=== PATIENT | female | born 1965 | race Caucasian/White ===

== ENCOUNTER → 2016-09-03 | Outpatient (CLI) | payer OTHER ==
[~2016-09-03] MED LIST: /ACETCOD2T PO; FURO40TA2 PO; GABA100C PO; MONT10TA2 PO; NORCOBULK PO; NUCY50TA PO; SYMB80AE IN; VENL25TA2 PO; VENTAER IN; VILAZODONE PO; VITA500047 PO; ZOLP12.515 PO
--- NOTE | 2016-09-03 15:12 | REP ---
Right forearm radiographs 09/03/2016, two-view exam Indication: Contusion Findings: AP and lateral views of the right forearm are provided for interpretation. There is no acute fracture subluxation or dislocation within the right forearm. Slight contour deformity/depression of portion of the radial head is consistent with old injury. There is no acute fracture or elbow joint effusion. Impression: findings compatible with old radial head compression type fracture. No acute fracture or dislocation within the right forearm. Signed by Latha Villanueva MD 09/03/2016 03:03 P
--- NOTE | 2016-09-03 15:14 | REP ---
Four view right wrist series 09/03/2016 Patient: Right wrist contusion Findings: Right wrist is without acute fracture, subluxation, or dislocation. The included portions of the metacarpals are within normal limits. The distal radius and ulna are unremarkable. Impression: negative right wrist series Signed by Latha Villanueva MD 09/03/2016 03:06 P
--- NOTE | 2016-09-03 15:21 | REP ---
LUMBAR SPINE, FIVE VIEWS: HISTORY: Contusion. COMPARISON: 08/21/2015 There is no acute fracture or subluxation. The L4-5 and L5-S1 intervertebral discs are decreased in height, consistent with disc degeneration. Osteophytes are present on L5 and S1. The facet joints are normal in appearance. IMPRESSION: Degenerative change as described above. Signed by David Santiago MD 09/03/2016 03:24 P
== END | disposition home or self-care (01) ==
LOC: M SMT 14:35
PROVIDERS: ATTEND Nurse Practitioner Family
DX: S60.211A Contusion of right wrist, initial encounter (principal); S30.0XXA Contusion of lower back and pelvis, initial encounter; M51.37 Other intervertebral disc degeneration, lumbosacral region; X58.XXXA Exposure to other specified factors, initial encounter; Y92.9 Unspecified place or not applicable; Y93.9 Activity, unspecified; Y99.9 Unspecified external cause status

== ENCOUNTER 2016-10-13 09:33 | Observation (INO) | payer MEDICAID, OTHER ==
[~2016-10-13] VITALS: Ht 157.5 cm; Wt 76.6 kg
--- NOTE | 2016-10-13 10:06 | REP ---
Clinical: Chest pain . Comparison: 02/12/2015 . Findings: The mediastinum and cardiac silhouette are stable and within normal limits for portable technique. The lung fregoso are clear without acute consolidation, effusion, or pneumothorax. Skeletal structures are intact. Impression: Normal portable chest x-ray Signed by Yobany Prado MD 10/13/2016 09:57 A
[2016-10-13 10:10] LABS: BASO % 0.4 % (0.0-1.0); EOS % 0.8 % (0.0-3.0); LARGE UNSTAINED CELL # 0.1 K/mm3 (0.0-0.4); LARGE UNSTAINED CELL % 1.9 % (0.0-4.0); LYMPH # 1.6 K/mm3 (1.5-4.5); LYMPH % 30.5 % (24.0-44.0); MEAN CORPUSCULAR HEMOGLOBIN 30.1 pg (27.0-33.0); MEAN CORPUSCULAR HGB CONC 34.5 g/dl (32.0-36.5); MEAN CORPUSCULAR VOLUME 87.2 fl (80.0-96.0); MONO # 0.2 K/mm3 (0.0-0.8); MONO % 3.7 % (0.0-5.0); NEUTROPHILS # 3.4 K/mm3 (1.8-7.7); NEUTROPHILS % 62.7 % (36.0-66.0); PLATELET COUNT, AUTOMATED 202 k/mm3 (150-450); RED CELL DISTRIBUTION WIDTH 13.3 % (11.5-14.5); WHITE BLOOD COUNT 5.4 K/mm3 (4.0-10.0)
[2016-10-13 10:33] LABS: ANION GAP 7 MEQ/L (8-16); BLOOD UREA NITROGEN 15 MG/DL (7-18); CALCIUM LEVEL 8.6 MG/DL (8.5-10.1); CARBON DIOXIDE LEVEL 28 MEQ/L (21-32); CHLORIDE LEVEL 107 MEQ/L (98-107); CREATININE FOR GFR 0.75 MG/DL (0.55-1.02); GLOMERULAR FILTRATION RATE > 60.0 (>58); GLUCOSE, FASTING 91 MG/DL (70-105); POTASSIUM SERUM 3.9 MEQ/L (3.5-5.1); SODIUM LEVEL 142 MEQ/L (136-145)
[2016-10-13] MEDS ORDERED: GABA300C3 PO (19:38)
[2016-10-13] MEDS ORDERED: VITACHTA PO (19:38)
[2016-10-13] MEDS ORDERED: VITATAB64 PO (19:38)
[2016-10-13] MEDS ORDERED: TRAZ100T4 PO (19:38)
[2016-10-13] MEDS ORDERED: MONT10TA2 PO (19:38)
[2016-10-13] MEDS ORDERED: CALC1TAB21 PO (19:38)
[2016-10-13] MEDS ORDERED: ACETAMINOPHEN TAB 650MG DOSE (2X325MG) PO PRN (19:45)
[2016-10-13] MEDS ORDERED: ONDANSETRON 4MG/2ML VIAL (J2405) IV PRN (19:45)
--- NOTE | 2016-10-13 20:58 | EDDOCDS ---
Physician Documentation [facility] Name: Deyanira Whiteside Age: 51 yrs Sex: Female : 1965 Arrival Date: 10/13/2016 Time: 09:33 Bed OBSERVATION Private MD: Estephania Bhat NP Disposition: 10/13/16 18:42 Hospitalization ordered by Sruthi Andrea for Inpatient Admission. Preliminary diagnosis are Bradycardia, unspecified, Other chest pain. - Bed requested for [facility] ([facility]). - Status is Inpatient Admission. cf2 - Condition is Stable. - Problem is new. - Symptoms have improved. Historical: - Allergies: Ultracet (disoriented); - Home Meds: 1. Gabapentin 150mg Oral nightly 2. trazodone 100 mg oral tab nightly 3. montelukast 10 mg oral tab 1 tab once daily 4. Calcium + Vitamin D 600 mg calcium- 200 unit Oral tab three times a day 5. Flintstones Complete (iron) oral chew daily 6. vitamin [id number] acid 1-0.8 mg oral tab daily - PMHx: anxiety with agoraphobia; Fibromyalgia; PTSD; - PSHx: gastric sleeve; ganglion cyst removal; ; Tubal ligation; - Social history: Smoking status: Patient states was never smoker of tobacco. No barriers to communication noted, The patient speaks fluent Lebanese, Speaks appropriately for age. - Family history: Not pertinent. - : The pt / caregiver states he / she is not on anticoagulants. Home medication list is obtained from the patient. - Exposure Risk Screening:: None identified. 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 2 in. (157.48 cm) (R); Pain 2/10; 10:20 BP 117 / 68 Supine; Pulse 54; ck1 10:20 BP 109 / 63 Sitting; Pulse 56; ck1 10:20 BP 117 / 71 Standing; Pulse 62; ck1 12:59 BP 117 / 70 (auto/); ck1 13:01 Pulse 54 MON; Pulse Ox 100% ; ck1 13:14 BP 128 / 75 (auto/); ck1 13:15 Pulse 56 MON; Pulse Ox 99% ; ck1 13:29 BP 109 / 60 (auto/); ck1 13:30 Pulse 54 MON; Pulse Ox 98% ; ck1 13:44 BP 106 / 61 (auto/); ck1 13:45 Pulse 52 MON; Pulse Ox 98% ; ck1 13:45 Resp 18; Temp 97.2(O); ck1 13:59 BP 87 / 52 (auto/); ck1 14:00 Pulse 54 MON; Pulse Ox 98% ; ck1 14:14 BP 93 / 53 (auto/); ck1 14:15 Pulse 54 MON; Pulse Ox 98% ; ck1 14:59 BP 106 / 60 (auto/); ck1 14:59 Pulse 48 MON; Pulse Ox 96% ; ck1 15:15 BP 114 / 69 (auto/); ck1 15:17 Pulse 50 MON; Pulse Ox 98% ; ck1 15:30 BP 120 / 56 (auto/); ck1 15:31 Pulse 48 MON; Pulse Ox 98% ; ck1 15:45 BP 105 / 59 (auto/); ck1 15:46 Pulse 48 MON; Pulse Ox 99% ; ck1 16:00 BP 115 / 58 (auto/); ck1 16:00 Pulse 44 MON; Pulse Ox 98% ; ck1 16:15 BP 120 / 61 (auto/); ck1 16:15 Pulse 44 MON; Pulse Ox 99% ; ck1 16:30 BP 116 / 62 (auto/); ck1 16:30 Pulse 42 MON; Pulse Ox 99% ; ck1 16:45 BP 114 / 63 (auto/); ck1 16:45 Pulse 46 MON; ck1 17:00 BP 109 / 57 (auto/); ck1 17:00 Pulse 44 MON; ck1 17:15 BP 105 / 62 (auto/); ck1 17:15 Pulse 46 MON; Pulse Ox 99% ; ck1 17:30 BP 105 / 63 (auto/); ck1 17:30 Pulse 48 MON; Pulse Ox 98% ; ck1 17:45 BP 102 / 68 (auto/); ck1 17:45 Pulse 52 MON; Pulse Ox 97% ; ck1 18:00 BP 98 / 67 (auto/); ck1 18:00 Pulse 58 MON; Pulse Ox 97% ; ck1 18:09 Resp 18; Temp 97.5(O); ck1 19:12 Pulse 44 MON; Pulse Ox 99% ; cf2 19:12 BP 101 / 62; Pulse 64; Resp 16; Temp 98.0; Pain 0/10; cf2 19:13 Pulse 54 MON; cf2 19:14 Pulse 56 MON; cf2 19:20 Pulse 62 MON; cf2 19:24 Pulse 62 MON; cf2 19:28 Pulse 62 MON; cf2 19:35 Pulse Ox 98% ; cf2 19:37 Pulse Ox 99% ; cf2 19:43 Pulse Ox 99% ; cf2 19:50 Pulse Ox 99% ; cf2 19:57 Pulse Ox 99% ; cf2 20:06 Pulse Ox 99% ; cf2 20:13 Pulse Ox 99% ; cf2 20:19 Pulse Ox 98% ; cf2 20:24 Pulse Ox 97% ; cf2 20:30 Pulse Ox 98% ; cf2 20:36 Pulse Ox 98% ; cf2 20:43 Pulse Ox 97% ; cf2 20:49 Pulse Ox 98% ; cf2 09:34 Body Mass Index 32.19 (79.83 kg, 157.48 cm) lr2 MDM: 09:39 ECG WITH READING ER PHYS+CARDIAG ordered. EDMS 09:41 Hand Inserter Operator/Pulse Ox/q 30 min VS ordered. sd1 09:41 IV Saline Lock ordered. sd1 09:41 Rhythm Strip to chart ordered. sd1 09:41 Undress patient appropriately for examination ordered. sd1 09:42 Basic Metabolic Profile Ordered. EDMS 09:42 CBC with Diff Ordered. EDMS 09:42 Cardiac Injury Profile Ordered. EDMS 09:42 Troponin Ordered. EDMS 09:42 portable chest Ordered. EDMS 10:15 Orthostatic VS ordered. sd1 10:15 NS 0.9% 1000 ml IV at bolus once ordered. sd1 10:16 D-Dimer Quant Ordered. EDMS 10:38 [place] [place] Agreement was scanned into [employer] and attached to record. jp5 10:38 Financial registration complete. jp5 10:42 Basic Metabolic Profile Reviewed. sd1 10:42 CBC with Diff Reviewed. sd1 10:42 Cardiac Injury Profile Reviewed. sd1 10:42 Troponin Reviewed. sd1 10:42 D-Dimer Quant Reviewed. sd1 10:42 portable chest Reviewed. sd1 12:02 Redraw CIP &Troponin (put time in details section) ordered. sd1 12:03 Repeat EKG (put time details section) ordered. sd1 12:23 CARDIAC INJURY PROFILE Ordered. EDMS 12:23 TROPONIN Ordered. EDMS 12:24 ELECTROCARDIOGRAM ADULT ordered. EDMS 12:24 Repeat EKG (put time details section) complete. jrd 12:24 Redraw CIP &Troponin (put time in details section) complete. jrd 15:01 CARDIAC INJURY PROFILE Reviewed. sd1 15:01 TROPONIN Reviewed. sd1 15:06 Misc. Nursing Order ordered. sd1 18:43 REGULAR+DIET ordered. EDMS 19:44 BASIC METABOLIC PROFILE Ordered. EDMS 19:44 CBC WITH DIFFERENTIAL Ordered. EDMS 19:45 Admission / Observation Status ordered. EDMS 19:45 ECHOCARD,DOPPLER/COLOR FLOW ordered. EDMS 19:45 ELECTROCARDIOGRAM ADULT ordered. EDMS 19:45 NO ADDED SALT DIET ordered. EDMS Administered Medications: 10:25 Drug: NS 0.9% 1000 ml [sodium chloride 0.9 % intravenous solution] Route: IV; Rate: ck1 bolus; Site: left antecubital; 13:41 Follow up: IV Status: Completed infusion ck1 Signatures: Dispatcher [employer] Myrtle Ceja MD MD sd1 Trista Pena, RN RN [facility] Ritu MANZO RN RN daq Kim-Ashcraft, Connie, RN RN ck1 Luis Alberto Machuca, [employer] [id number] Nikolas Almeida, [employer] Shawn Villanueva jp5 Noemy Lombardi,RN RN cf2 The chart was reviewed and I authenticate all verbal orders and agree with the evaluation and treatment provided.Attachments: 10:38 [facility] Payment Agreement jp5 MTDD
--- NOTE | 2016-10-13 20:58 | EDDOCDS ---
Nurse's Notes [facility] Name: Deyanira Whiteside Age: 51 yrs Sex: Female : 1965 Arrival Date: 10/13/2016 Time: 09:33 Bed OBSERVATION Private MD: Estephania Bhat NP Diagnosis: Bradycardia, unspecified;Other chest pain Presentation: 10/13 09:40 Presenting complaint: Patient states: chest pain and tingling feweling in chest and srm left ar. lightheaded for a few days. SOB with Chest pain. nause. Presenting complaint: Patient states: symptoms started at 0600. Presenting complaint: Patient states: legs felt numb and tingling this am and she thought shew was going to fall down. Aspirin was not taken prior to arrival. Adult Sepsis Screening: The patient does not have new or worsening altered mentation. Patient's respiratory rate is less than 22. Systolic blood pressure is greater than 100. Patient has a qSOFA score of 0- Negative Sepsis Screen. Suicide/Homicide risk assessment- the patient denies having any suicidal and/or homicidal ideations and does not present with any other emotional, behavioral or mental health complaints. 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 Transition of care: patient was not received from another setting of care. 09:40 Acuity: WHIT Level 2 srm 09:40 Method Of Arrival: Wheelchair srm 09:46 Red Flag criteria, patient assessed and taken directly to a bed. srm 09:47 Presenting complaint: Patient states: also swelling to legs and feet. nausea. [facility] Triage Assessment: 09:45 General: Appears in no apparent distress, Behavior is appropriate for age, cooperative. srm Pain: Location: left arm Pain currently is 5 out of 10 on a pain scale. Cardiovascular: Chest pain is described as Pain is 10 out of 10 on a pain scale. radiates to left arm(s) episodes are intermittent began 3.5 hours ago. 10:06 HIV screening NA for this visit Offered previously. 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 Gabapentin 150mg Oral nightly 2. trazodone 100 mg oral tab nightly 3. montelukast 10 mg oral tab 1 tab once daily 4. Calcium + Vitamin D 600 mg calcium- 200 unit Oral tab three times a day 5. Flintstones Complete (iron) oral chew daily 6. vitamin [id number] acid 1-0.8 mg oral tab daily - PMHx: anxiety with agoraphobia; Fibromyalgia; PTSD; - PSHx: gastric sleeve; ganglion cyst removal; ; Tubal ligation; - Social history: Smoking status: Patient states was never smoker of tobacco. No barriers to communication noted, The patient speaks fluent Honduran, Speaks appropriately for age. - Family history: Not pertinent. - : The pt / caregiver states he / she is not on anticoagulants. Home medication list is obtained from the patient. - Exposure Risk Screening:: None identified. Screenin:04 Screening information is obtained from the patient. Fall risk: No risks identified. ck1 Assistance ADL's: requires no assistance with activities of daily living. Abuse/DV Screen: The patient / caregiver reports he/she is: not in a situation that causes fear, pain or injury. Nutritional screening: No deficits noted. Advance Directives: Currently, there is no health care proxy. home support is adequate. Assessment: 10:05 General: Appears in no apparent distress, comfortable, Behavior is anxious, ck1 cooperative. Pain: Location: chest Pain currently is 7 out of 10 on a pain scale. Neurological: Level of Consciousness is awake, alert, obeys commands, Oriented to person, place, time. Cardiovascular: Rhythm is sinus bradycardia. Respiratory: Respiratory effort is unlabored, Respiratory pattern is regular, symmetrical. GI: No deficits noted. Derm: Skin is intact, is healthy with good turgor, Skin is pink, warm & dry. 11:05 Reassessment: Patient appears in no apparent distress at this time. ck1 12:05 General: Appears in no apparent distress, comfortable, Behavior is appropriate for age, ck1 cooperative. Pain: Location: chest Pain currently is 5 out of 10 on a pain scale. Neurological: Level of Consciousness is awake, alert, obeys commands, Oriented to person, place, time. Cardiovascular: Rhythm is sinus bradycardia. Respiratory: Respiratory effort is unlabored, Respiratory pattern is regular, symmetrical. Derm: Skin is pink, warm & dry. 13:01 General: Patient is resting quietly on stretcher eating lunch. No acute distress noted ck1 at this time. States chest pain as improved to 5/10. No acute distress noted, respiration easy and unlabored. Family members at bedside, call light in reach. patient aware of repeat lab work and EKG at 1400. Will continue to monitor patient. 14:00 General: Appears in no apparent distress, comfortable, Behavior is appropriate for age, ck1 cooperative. Pain: Location: chest Pain currently is 5 out of 10 on a pain scale. Quality of pain is described as pressure. Neurological: Level of Consciousness is awake, alert, obeys commands, Oriented to person, place, time. Cardiovascular: Rhythm is sinus bradycardia. Respiratory: Respiratory effort is unlabored, Respiratory pattern is regular, symmetrical. GI: No deficits noted. Derm: Skin is intact, is healthy with good turgor, Skin is pink, warm & dry. Musculoskeletal: Range of motion intact in all extremities. 14:45 Reassessment: Patient appears in no apparent distress at this time. ck1 15:15 General: Patient attempted ambulation. Gait unsteady, reports feeling dizzy and ck1 lightheaded. Assisted back to bed, positioned for comfort. Call light in reach, family members at bedside. Dr. Ortega aware. 16:18 Reassessment: Patient appears in no apparent distress at this time. Neurological: Level ck1 of Consciousness is awake, alert, obeys commands, Oriented to person, place, time, Reports dizziness. Cardiovascular: Rhythm is sinus bradycardia. Respiratory: Respiratory effort is unlabored, Respiratory pattern is regular, symmetrical. GI: No deficits noted. Derm: Skin is pink, warm & dry. 17:14 General: Appears in no apparent distress, comfortable, Behavior is appropriate for age, ck1 cooperative. Pain: Location: chest Pain currently is 5 out of 10 on a pain scale. Quality of pain is described as pressure. Neurological: Level of Consciousness is awake, alert, obeys commands, Oriented to person, place, time. Cardiovascular: Rhythm is sinus bradycardia. Respiratory: Respiratory effort is unlabored, Respiratory pattern is regular, symmetrical. GI: No deficits noted. Derm: Skin is intact, is healthy with good turgor, Skin is pink, warm & dry. Musculoskeletal: Range of motion intact in all extremities. 18:12 General: Patient sitting up to side of bed, states dizziness has improved. No acute ck1 distress noted. Cardiac rhythm NSR. Vital Signs: 09:34 BP 120 / 65; Pulse 59; Resp 16; Temp 96.5(O); Pulse Ox 100% on R/A; Weight 79.83 kg lr2 (R); Height 5 ft. 2 in. (157.48 cm) (R); Pain 2/10; 10:20 BP 117 / 68 Supine; Pulse 54; ck1 10:20 BP 109 / 63 Sitting; Pulse 56; ck1 10:20 BP 117 / 71 Standing; Pulse 62; ck1 12:59 BP 117 / 70 (auto/); ck1 13:01 Pulse 54 MON; Pulse Ox 100% ; ck1 13:14 BP 128 / 75 (auto/); ck1 13:15 Pulse 56 MON; Pulse Ox 99% ; ck1 13:29 BP 109 / 60 (auto/); ck1 13:30 Pulse 54 MON; Pulse Ox 98% ; ck1 13:44 BP 106 / 61 (auto/); ck1 13:45 Pulse 52 MON; Pulse Ox 98% ; ck1 13:45 Resp 18; Temp 97.2(O); ck1 13:59 BP 87 / 52 (auto/); ck1 14:00 Pulse 54 MON; Pulse Ox 98% ; ck1 14:14 BP 93 / 53 (auto/); ck1 14:15 Pulse 54 MON; Pulse Ox 98% ; ck1 14:59 BP 106 / 60 (auto/); ck1 14:59 Pulse 48 MON; Pulse Ox 96% ; ck1 15:15 BP 114 / 69 (auto/); ck1 15:17 Pulse 50 MON; Pulse Ox 98% ; ck1 15:30 BP 120 / 56 (auto/); ck1 15:31 Pulse 48 MON; Pulse Ox 98% ; ck1 15:45 BP 105 / 59 (auto/); ck1 15:46 Pulse 48 MON; Pulse Ox 99% ; ck1 16:00 BP 115 / 58 (auto/); ck1 16:00 Pulse 44 MON; Pulse Ox 98% ; ck1 16:15 BP 120 / 61 (auto/); ck1 16:15 Pulse 44 MON; Pulse Ox 99% ; ck1 16:30 BP 116 / 62 (auto/); ck1 16:30 Pulse 42 MON; Pulse Ox 99% ; ck1 16:45 BP 114 / 63 (auto/); ck1 16:45 Pulse 46 MON; ck1 17:00 BP 109 / 57 (auto/); ck1 17:00 Pulse 44 MON; ck1 17:15 BP 105 / 62 (auto/); ck1 17:15 Pulse 46 MON; Pulse Ox 99% ; ck1 17:30 BP 105 / 63 (auto/); ck1 17:30 Pulse 48 MON; Pulse Ox 98% ; ck1 17:45 BP 102 / 68 (auto/); ck1 17:45 Pulse 52 MON; Pulse Ox 97% ; ck1 18:00 BP 98 / 67 (auto/); ck1 18:00 Pulse 58 MON; Pulse Ox 97% ; ck1 18:09 Resp 18; Temp 97.5(O); ck1 19:12 Pulse 44 MON; Pulse Ox 99% ; cf2 19:12 BP 101 / 62; Pulse 64; Resp 16; Temp 98.0; Pain 0/10; cf2 19:13 Pulse 54 MON; cf2 19:14 Pulse 56 MON; cf2 19:20 Pulse 62 MON; cf2 19:24 Pulse 62 MON; cf2 19:28 Pulse 62 MON; cf2 19:35 Pulse Ox 98% ; cf2 19:37 Pulse Ox 99% ; cf2 19:43 Pulse Ox 99% ; cf2 19:50 Pulse Ox 99% ; cf2 19:57 Pulse Ox 99% ; cf2 20:06 Pulse Ox 99% ; cf2 20:13 Pulse Ox 99% ; cf2 20:19 Pulse Ox 98% ; cf2 20:24 Pulse Ox 97% ; cf2 20:30 Pulse Ox 98% ; cf2 20:36 Pulse Ox 98% ; cf2 20:43 Pulse Ox 97% ; cf2 20:49 Pulse Ox 98% ; cf2 09:34 Body Mass Index 32.19 (79.83 kg, 157.48 cm) lr2 Vitals: 09:34 Log In Time: October 13, 2016 at 09:33. lr2 09:36 RN notified that patient meets Red Flag criteria. lr2 ED Course: 09:34 Patient visited by Ami Hammonds. lr2 09:34 Patient moved to Waiting lr2 09:35 Estephania Bhat is Private Physician. lr2 09:36 Patient moved to Pre RCE lr2 09:40 Ray Angulo,DANIEL is Primary Nurse. srm 09:40 Angelica Ford,RN is Primary Nurse. srm 09:40 Patient moved to 7 srm 09:43 Triage Initiated srm 09:43 EKG done. (by ED staff). Reviewed by Myrtle Burgess MD. nb2 09:47 Patient visited by Rita Garvin. nb2 09:47 Patient visited by Trista Pena, DANIEL. srm 09:47 The patient / caregiver is instructed regarding the plan of care and ED course. Patient srm has correct armband on for positive identification. Placed in gown. Bed in low position. Call light in reach. lumber loader on. Pulse ox on. NIBP on. 10:04 Myrtle Burgess MD is Attending Physician. sd1 10:04 Patient visited by Angelica Ford,DANIEL. ck1 10:04 Basic Metabolic Profile Sent. ck1 10:04 CBC with Diff Sent. ck1 10:04 Cardiac Injury Profile Sent. ck1 10:04 Troponin Sent. ck1 10:04 Inserted saline lock: 20 gauge in left antecubital area and blood collected. The ck1 patient tolerated the procedure well. 10:05 Patient visited by Myrtle Burgess MD. sd1 10:11 portable chest Returned. EDMS 10:17 D-Dimer Quant Sent. ck1 10:20 Patient visited by Angelica Ford,DANIEL. ck1 10:25 Patient visited by Angelica Ford,DANIEL. ck1 10:38 [facility] Payment Agreement was scanned into [employer] and attached to record. jp5 10:58 Patient moved to OBSERVATION sd1 14:15 TROPONIN Sent. ck1 14:15 CARDIAC INJURY PROFILE Sent. ck1 14:29 Patient visited by Rita Garvin. nb2 14:29 EKG done. (by ED staff). Reviewed by Myrtle Burgess MD. nb2 18:41 Sruthi Andrea is Hospitalizing Provider. sd1 18:50 Primary Nurse role handed off by Angelica Ford,DANIEL ck1 19:10 Primary Nurse role handed off by Ray Angulo RN cf2 19:10 Noemy Lombardi,DANIEL is Primary Nurse. cf2 19:11 Patient visited by Noemy Lombardi RN. cf2 20:04 Patient visited by Noemy Lombardi RN. cf2 20:22 Patient visited by Noemy Lombardi,DANIEL. cf2 20:50 Patient visited by Noemy Lombardi,DANIEL. cf2 20:51 No procedures done that require assistance. cf2 Administered Medications: 10:25 Drug: NS 0.9% 1000 ml [sodium chloride 0.9 % intravenous solution] Route: IV; Rate: ck1 bolus; Site: left antecubital; 13:41 Follow up: IV Status: Completed infusion ck1 Order Results: Lab Order: Basic Metabolic Profile; SPEC'M 10/13/16 10:03 Test: GLUCOSE, FASTING; Value: 91; Range: 70-105; Units: MG/DL; Status: F Test: BLOOD UREA NITROGEN; Value: 15; Range: 7-18; Units: MG/DL; Status: F Test: CREATININE FOR GFR; Value: 0.75; Range: 0.55-1.02; Units: MG/DL; Status: F Test: GLOMERULAR FILTRATION RATE; Value: > 60.0; Range: >58; Status: F Test: SODIUM LEVEL; Value: 142; Range: 136-145; Units: MEQ/L; Status: F Test: POTASSIUM SERUM; Value: 3.9; Range: 3.5-5.1; Units: MEQ/L; Status: F Test: CHLORIDE LEVEL; Value: 107; Range: 98-107; Units: MEQ/L; Status: F Test: CARBON DIOXIDE LEVEL; Value: 28; Range: 21-32; Units: MEQ/L; Status: F Test: ANION GAP; Value: 7; Range: 8-16; Abnormal: Below low normal; Units: MEQ/L; Status: F Test: CALCIUM LEVEL; Value: 8.6; Range: 8.5-10.1; Units: MG/DL; Status: F Test Note: ; Units are mL/min/1.73 m2 Chronic Kidney Disease Staging per NKF: Stage I & II GFR >=60 Normal to Mildly Decreased Stage III GFR 30-59 Moderately Decreased Stage IV GFR 15-29 Severely Decreased Stage V GFR <15 Very Little GFR Left ESRD GFR <15 on STRAWHAT BLOCKING OPERATOR Lab Order: CBC with Diff; SPEC'M 10/13/16 10:03 Test: WHITE BLOOD COUNT; Value: 5.4; Range: 4.0-10.0; Units: K/mm3; Status: F Test: RED BLOOD COUNT; Value: 4.37; Range: 4.00-5.40; Units: M/mm3; Status: F Test: HEMOGLOBIN; Value: 13.2; Range: 12.0-16.0; Units: g/dl; Status: F Test: HEMATOCRIT; Value: 38.1; Range: 36.0-47.0; Units: %; Status: F Test: MEAN CORPUSCULAR VOLUME; Value: 87.2; Range: 80.0-96.0; Units: fl; Status: F Test: MEAN CORPUSCULAR HEMOGLOBIN; Value: 30.1; Range: 27.0-33.0; Units: pg; Status: F Test: MEAN CORPUSCULAR HGB CONC; Value: 34.5; Range: 32.0-36.5; Units: g/dl; Status: F Test: RED CELL DISTRIBUTION WIDTH; Value: 13.3; Range: 11.5-14.5; Units: %; Status: F Test: PLATELET COUNT, AUTOMATED; Value: 202; Range: 150-450; Units: k/mm3; Status: F Test: NEUTROPHILS %; Value: 62.7; Range: 36.0-66.0; Units: %; Status: F Test: LYMPH %; Value: 30.5; Range: 24.0-44.0; Units: %; Status: F Test: MONO %; Value: 3.7; Range: 0.0-5.0; Units: %; Status: F Test: EOS %; Value: 0.8; Range: 0.0-3.0; Units: %; Status: F Test: BASO %; Value: 0.4; Range: 0.0-1.0; Units: %; Status: F Test: LARGE UNSTAINED CELL %; Value: 1.9; Range: 0.0-4.0; Units: %; Status: F Test: NEUTROPHILS #; Value: 3.4; Range: 1.8-7.7; Units: K/mm3; Status: F Test: LYMPH #; Value: 1.6; Range: 1.5-4.5; Units: K/mm3; Status: F Test: MONO #; Value: 0.2; Range: 0.0-0.8; Units: K/mm3; Status: F Test: EOS #; Value: 0.0; Range: 0.0-0.50; Units: K/mm3; Status: F Test: BASO #; Value: 0.0; Range: 0.0-0.2; Units: K/mm3; Status: F Test: LARGE UNSTAINED CELL #; Value: 0.1; Range: 0.0-0.4; Units: K/mm3; Status: F Lab Order: Cardiac Injury Profile; [facility] 10/13/16 10:03 Test: CPK CREATINE PHOSPHOKINASE; Value: 60; Range: 26-192; Units: U/L; Status: F Test: CK-MB VALUE MASS; Value: 1.0; Range: 0.0-3.6; Units: NG/ML; Status: F Test: MB/CK RELATIVE INDEX; Value: 1.66; Range: < OR =4; Status: F Test Note: ; DIAGNOSIS CRITERIA MMB ng/ml Relative Index (RI) NON-AMI < or = 5 N/A BRITTON ZONE > 5 < or = 4 AMI > 5 > 4 Lab Order: Troponin; 10/13/16 10:03 Test: TROPONIN I; Value: < 0.02; Range: < 0.10; Units: NG/ML; Status: F Test Note: ; Troponin I Reference Interval for Everypoint LOCI: 99th Percentile= 0.00-0.045 ng/ml Risk Stratification: <= 0.10 ng/ml Decreased Risk for Adverse Clinical Events. 0.10-1.50 ng/ml Increased Risk for Adverse Clinical Events. Evaluation of additional criterion and/or repeat testing in 2-6 hours is suggested to rule out myocardial damage. >= 1.50 ng/ml Indicative of Myocardial Injury. Lab Order[facility] Test: D-DIMER QUANT; Value: < 270.0; Range: <500; Units: ng/ml; Status: F Lab Order: CARDIAC INJURY PROFILE; [facility] 10/13/16 14:15 Test: CPK CREATINE PHOSPHOKINASE; Value: 49; Range: 26-192; Units: U/L; Status: F Test: CK-MB VALUE MASS; Value: 1.0; Range: 0.0-3.6; Units: NG/ML; Status: F Test: MB/CK RELATIVE INDEX; Value: 2.04; Range: < OR =4; Status: F Test Note: ; DIAGNOSIS CRITERIA MMB ng/ml Relative Index (RI) NON-AMI < or = 5 N/A BRITTON ZONE > 5 < or = 4 AMI > 5 > 4 Lab Order: TROPONIN; SPEC'M 10/13/16 14:15 Test: TROPONIN I; Value: < 0.02; Range: < 0.10; Units: NG/ML; Status: F Test Note: ; Troponin I Reference Interval for Everypoint LOCI: 99th Percentile= 0.00-0.045 ng/ml Risk Stratification: <= 0.10 ng/ml Decreased Risk for Adverse Clinical Events. 0.10-1.50 ng/ml Increased Risk for Adverse Clinical Events. Evaluation of additional criterion and/or repeat testing in 2-6 hours is suggested to rule out myocardial damage. >= 1.50 ng/ml Indicative of Myocardial Injury. Radiology Order: portable chest Test: portable chest REASON FOR EXAMINATION: Chest Pain; Clinical: Chest pain .; ; Comparison: 02/12/2015 .; ; Findings:; The mediastinum and cardiac silhouette are stable and within normal limits for; portable technique. The lung fregoso are clear without acute consolidation,; effusion, or pneumothorax. Skeletal structures are intact.; ; Impression:; Normal portable chest x-ray; ; ; Signed by; Yobany Prado MD 10/13/2016 09:57 A; Outcome: 18:42 Decision to Hospitalize by Provider. sd1 20:52 Discharge Assessment: Patient awake, alert and oriented x 3. No cognitive and/or cf2 functional deficits noted. Patient verbalized understanding of disposition instructions. Patient awake and alert. Oriented to person, place and time. patient administered narcotics - no. The following High Risk Discharge criteria are identified: None. Admitted to PCU. Condition: stable. No special radiology studies were completed. Property :Personal belongings accompany Pt. 20:57 Patient left the ED. cf2 Signatures: Dispatcher [employer] EDMyrtle Do MD MD sd1 Trista Pena RN RN [facility] Angelica FordRN RN ck1 Shawn Copeland jp5 Noemy LombardiRN RN 2 Rita Garvin2 Ami Hammonds lr2 Corrections: (The following items were deleted from the chart) 18: 18:09 General: Appears in no apparent distress, comfortable, Behavior is appropriate ck1 for age, cooperative, ck1 : 18:09 Neurological: Reports dizziness, ck ck1 18: 18:09 Pain: Location: chest Pain currently is 5 out of 10 on a pain scale. ck ck1 : 18:09 Cardiovascular: Rhythm is sinus bradycardia ck1 ck1 : 18:09 Respiratory: Respiratory effort is unlabored, Respiratory pattern is regular, ck1 symmetrical, ck1 : 18:09 Derm: Skin is intact, is healthy with good turgor, Skin is pink, warm & dry. [facility] MTDD
[2016-10-13 21:00] VITALS: BP 113/60
[2016-10-13] MEDS ORDERED: traZODone 100 MG TAB PO SCH (21:00)
--- NOTE | 2016-10-13 22:32 | ECGEPIP ---
Stationary ECG Study [facility] Test Date: 2016-10-13 Pat Name: DAMIR CANELA Department: Room: - Gender: F Equine Intern: nick : 1965 Requested By: Myrtle Burgess Order Number: [id number] Reading MD: Kris Rivas Measurements Intervals [place] Rate: 54 P: 52 [place]: 185 QRS: 1 QRSD: 99 T: 17 QT: 431 QTc: 410 Interpretive Statements SINUS BRADYCARDIA Borderline poor R-wave progression. No prior ECG available for comparison at the time of interpretation. Electronically Signed On 10-13-2016 22:31:46 EST by Kris Rivas
[2016-10-13] MEDS ORDERED: SLF 3 ML SYR IV PRN (23:15)
[2016-10-13] MEDS: MONTELUKAST 10 MG TAB PO SCH (23:48)
[2016-10-13] MEDS: GABAPENTIN 300 MG CAP PO SCH (23:49)
[2016-10-14] VITALS: BP 114/67
[2016-10-14 04:00] VITALS: BP 98/53
[2016-10-14] MEDS: SLF 3 ML SYR IV SCH ×3 (04:48→22:02)
--- NOTE | 2016-10-14 05:08 | HPE ---
DATE OF ADMISSION: 10/13/2016 PRIMARY CARE PROVIDER: Deyanira Bhat NP CHIEF COMPLAINT: Chest pain, left arm tingling, and bradycardia. HISTORY OF PRESENT ILLNESS: This is a 51-year-old female with a past medical history of fibromyalgia, anxiety. She presented to the emergency department today complaining of feeling unwell for approximately 3-4 days. This morning, the patient woke up approximately at 6 a.m. with a prickly sensation in her left chest that radiated to her shoulders and down her arm. She also felt nauseated. She did not vomit. Also, she reports increased swelling in her ankles up to her mid calf. This is something that is new for her. She was feeling lightheaded this morning when she was ambulating. She denies any vertigo. She ate breakfast and lunch today. She did not eat anything out of the ordinary. She currently has what she describes as a chest heaviness in the left side of her chest. This has changed since the morning where she was rating at 7/10 on a pain scale. Currently the sensation is decreased to 5/10, and it persists as a "prickly" heaviness inside her chest. The patient denies any loss of consciousness, falls, or trauma. The patient reports that she has seen Dr. Dumont, cardiology in the past. She has had a Holter monitor to workup her bradycardia. In the emergency department, the patient has been monitored, she had some bradycardia throughout the day. Cardiac workup has been so for negative for an acute cardiac event. However, she persists with this sensation in her chest and also has symptoms of lightheadedness when she is ambulating. PAST MEDICAL HISTORY: Depression, post-traumatic stress disorder from childhood event, generalized anxiety disorder, agoraphobia with panic disorder, fibromyalgia, allergic rhinitis, history of diabetes mellitus, status post bariatric surgery, degenerative disc disease in the lumbar spine, mild persistent asthma. PAST SURGICAL HISTORY: Gastric sleeve in 2013, in 1990, cholecystectomy approximately 15 years ago, right wrist ganglion cyst excision, tubal ligation in 1990. SOCIAL HISTORY: The patient quit smoking 25 years ago. She has a 10 pack-year history of smoking. Denies any alcohol or recreational drug use. The patient lives with her boyfriend, she has five cats and four dogs. She is currently on disability for fibromyalgia and does not work. FAMILY HISTORY: The patient reports that her maternal grandmother had a myocardial infarction at the age of 65. She has a maternal grandmother who had coronary artery disease at the age of 67. She has an aunt with a stroke history. Her father had pancreatic cancer. HOME MEDICATIONS: - gabapentin 150 mg nightly - Trazodone 100 mg nightly - montelukast 10 mg daily - calcium plus vitamin D 600 mg/200 units three times a day - multivitamin - vitamin B12 - folic acid 1/0.8 mg daily - albuterol inhaler as needed ALLERGIES: Allergic to ULTRACET and OXYCODONE. REVIEW OF SYSTEMS: CONSTITUTIONAL SYMPTOMS: Denies any unexplained weight loss, fevers, chills. Admits to feeling unwell for the last several days. HEENT: Denies any visual changes, headaches, nasal congestion, sore throat. CARDIOVASCULAR: Admits to chest heaviness and tingling in the left chest. Denies shortness of breath, palpitations. Admits to bradycardia. RESPIRATORY: Denies any cough, wheeze, shortness of breath. GASTROINTESTINAL: Denies any abdominal pain, vomiting, constipation, and hematochezia, melena. She admits to having recent episode of diarrhea, and is currently nauseated. : Denies dysuria, incontinence. MUSCULOSKELETAL: Admits to arm and left hand weakness. Denies any current joint aches or pains. NEUROLOGIC: Has tingling sensation in the left arm. PHYSICAL EXAMINATION: VITAL SIGNS: Blood pressure 120/65, pulse is 58, respirations 18, temperature is 97.5, pulse ox is 97% on room air. Her weight is 79.83 kg. Her height is 157 cm. GENERAL: The patient is resting on the hospital bed, she does not appear to be in any acute distress, she is calm and cooperative. HEENT: Her head is normocephalic, atraumatic. Her extraocular movements are intact bilaterally. Her pupils are equally round and reactive to light and accommodation. No facial asymmetry. Tongue is midline. Mucous membranes are moist. No throat erythema or exudates. CARDIAC: Slight bradycardia. Regular rhythm. No murmurs appreciated. RESPIRATORY: Is clear to auscultation bilaterally. No wheezes appreciated. ABDOMEN: Is soft, nontender, nondistended. Normoactive bowel sounds are heard throughout. EXTREMITIES: No swelling in the bilateral lower extremities. +2 radial and pedal pulses. MUSCULOSKELETAL: 5/5 muscle strength in all extremities. NEURO: No loss of sensation throughout. She has positive Phalen's and Tinel's on the left. Cranial nerves II-XII are grossly intact. PSYCH: She is alert and oriented to person, place, time and situation. INTEGUMENTARY: Skin is dry, warm, pink. No rashes appreciated. LABORATORY FINDINGS: Fasting glucose 91, BUN 15, creatinine 0.75 sodium 142, potassium 3.9, chloride 107, carbon dioxide 28, calcium level 8.6. WBC is 5.4, hemoglobin 13.2, hematocrit 38.1, platelet count is 202. Troponin less than 0.02 , repeat less than 0.02. IMAGING STUDIES: Chest x-ray completed on 10/13/2016, normal portable chest x-ray. EKG: Sinus bradycardia with a heart rate of 54, completed on 10/13/2016. ASSESSMENT AND PLAN: This is a 51-year-old female with atypical chest pain which is unlikely due to cardiac ischemia and lightheadedness. At this time, we are admitting the patient to the progressive care unit where she will be placed on telemetry, and will cycle the cardiac markers. She has a known history of bradycardia. We will be monitoring her overnight for any changes in her heart rhythm. The patient will order an echocardiogram should the enzymes become positive.We will recheck her CBC and BMP in the morning. Her home medications for fibromyalgia and anxiety will be continued. As for her left arm symptoms, it is likely to be carpal tunnel given physical exam and her complaints of tingling sensation. This will need to be worked up as an outpatient. At this time the patient was agreeable to the plan. She had no further questions or concerns. My preceptor for this patient encounter was Dr. Sruthi Andrea. The preceptor was physically present in the building during the encounter and was fully available as needed. All aspects of the patient interview, examination, medical decision making process, and medical care plan development were reviewed and approved by the preceptor. The preceptor is aware and concurs with the plan as stated in the body of this note and will attest to such by her co-signature. CAMILO
[2016-10-14 07:15] LABS: BASO % 0.5 % (0.0-1.0); EOS # 0.1 K/mm3 (0.0-0.50); EOS % 1.6 % (0.0-3.0); LARGE UNSTAINED CELL # 0.1 K/mm3 (0.0-0.4); LARGE UNSTAINED CELL % 1.9 % (0.0-4.0); LYMPH # 1.7 K/mm3 (1.5-4.5); LYMPH % 34.4 % (24.0-44.0); MEAN CORPUSCULAR HEMOGLOBIN 30.8 pg (27.0-33.0); MEAN CORPUSCULAR HGB CONC 34.4 g/dl (32.0-36.5); MEAN CORPUSCULAR VOLUME 89.4 fl (80.0-96.0); MONO # 0.3 K/mm3 (0.0-0.8); NEUTROPHILS # 2.6 K/mm3 (1.8-7.7); NEUTROPHILS % 55.6 % (36.0-66.0); PLATELET COUNT, AUTOMATED 203 k/mm3 (150-450); RED CELL DISTRIBUTION WIDTH 13.5 % (11.5-14.5); WHITE BLOOD COUNT 4.8 K/mm3 (4.0-10.0)
[2016-10-14 07:22] LABS: ANION GAP 8 MEQ/L (8-16); BLOOD UREA NITROGEN 15 MG/DL (7-18); CALCIUM LEVEL 8.5 MG/DL (8.5-10.1); CARBON DIOXIDE LEVEL 27 MEQ/L (21-32); CHLORIDE LEVEL 109 MEQ/L (98-107); CREATININE FOR GFR 0.74 MG/DL (0.55-1.02); GLOMERULAR FILTRATION RATE > 60.0 (>58); GLUCOSE, FASTING 90 MG/DL (70-105); POTASSIUM SERUM 4.1 MEQ/L (3.5-5.1); SODIUM LEVEL 144 MEQ/L (136-145)
[2016-10-14 08:00] VITALS: BP_SYST 101; BP_SYST 110; BP_SYST 112; BP_SYST 94; BP_DIAS 56; BP_DIAS 62; BP_DIAS 63; BP_DIAS 66
--- NOTE | 2016-10-14 08:30 | ECGEPIP ---
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
[2016-10-14 12:00] VITALS: BP 100/62
--- NOTE | 2016-10-14 13:54 | ECGEPIP ---
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
[2016-10-14 16:00] VITALS: BP 110/70
[2016-10-14 20:00] VITALS: BP 100/66
[2016-10-14] MEDS: GABAPENTIN 300 MG CAP PO SCH (22:02)
[2016-10-14] MEDS: MONTELUKAST 10 MG TAB PO SCH (22:02)
[2016-10-14] MEDS: diphenhydrAMINE 25 MG CAP PO PRN (22:02)
--- NOTE | 2016-10-14 23:03 | IPNPDOC ---
Subjective Date Seen The patient was seen on 10/14/16. Subjective Chief Complaint/HPI The patient is a 51-year-old female admitted with a reason for visit of Chest Pain. Events since last encounter Pt admitted for L-sided chest discomfort and nausea. Reports this is generally in conjunction with slowing of her heart rate. Feels her hands and feet start tingling and she feels a heaviness in her chest. States that she felt this was last night when her pulse dropped. Nursing also noted this. Pt had workup with [facility] by Dr. Julia abdullahi and they were monitoring sinus bradycardia. Pt denies new medications, foreign travel, or recent illness. She does not recall any tick bites or rashes, however does spend a fair amount of time outside in the summer with her dogs. Does reports intermittent sweats. Notes hands and feet had significant swelling yesterday. General: Denies: Night Sweats Constitutional: Reports: Fatigue, Weakness, Denies: Chills, Fever, Malaise, Night Sweats Eyes: Denies: Vision change Skin: Denies: Rash Pulmonary: Denies: Cough, Dyspnea Cardiovascular: Reports: Chest Pain, Lt Headedness, Other Symptoms (tingling in L arm and leg; chest heaviness), Denies: Palpitations Gastrointestinal: Reports: Nausea, Denies: Abdominal Pain, Constipation, Diarrhea, Vomiting Psych: Reports: Mood Normal Other systems 10 pt ROS is otherwise normal Objective Physical Examination General Exam: Positive: Alert, Cooperative, No Acute Distress Eye Exam: Positive: Conjunctiva & lids normal, PERRLA ENT Exam: Positive: Mucous membr. moist/pink Neck Exam: Positive: Supple, Negative: JVD, thyromegaly Chest Exam: Positive: Clear to auscultation, Normal air movement, Negative: Rales, Rhonchi, Wheezing Heart Exam: Positive: Bradycardic, Normal S1, Normal S2, Regular Rhythm, Negative: Rate Normal Telemetry: Positive: Bradycardia, Other Telemetry: (No WI prolongation, 2nd degree block), Sinus Abdomen Exam: Positive: Normal bowel sounds, Soft, Negative: Hepatospenomegaly, Tenderness Extremity Exam: Positive: Normal pulses, Negative: Clubbing, Cyanosis, Edema Psych Exam: Positive: Mental status NL, Mood NL Assessment /Plan Problems (1) Sinus bradycardia Status: Chronic Response to Treatment: Stable Problem Text: On tele. Trops neg. EKG shows no block. Hx of normal TSH, although will recheck as pt reports general fatigue. Lyme myocarditis unlikely, but pt does have dogs and spends time outside. - TSH - lyme screening - cardiology consulted, Aashish - Echo read pending (2) Chest pain Status: Acute Problem Text: None currently. Trops negative. Borderline poor R-R progression on EKG. (3) Hx of gastric bypass Status: Acute Problem Text: On supplements. Sleeve gastrectomy. Poss dumping syndrome sx, although pt reports being compliant with dietary recs to avoid this. Plan/VTE VTE Prophylaxis Ordered?: Yes Disposition pending cardiac eval VS, I&O, 24H, Fishbone Vital Signs/I&O Vital Signs Date Time Temp Pulse Resp B/P Pulse Ox O2 Delivery O2 Flow Rate FiO2 10/14/16 16:00 97.2 67 17 110/70 98 Room Air I&O- Last 24 Hours up to 6 AM 10/14/16 06:00 Intake Total 600 ml Output Total 0 ml Balance 600 ml Laboratory Data 24H LABS Laboratory Tests 2 10/14/16 06:29: 10/14/16 06:33: Anion Gap 8, White Blood Count 4.8, Red Blood Count 4.25, Hemoglobin 13.1, Hematocrit 37.9, Mean Corpuscular Volume 89.4, Mean Corpuscular Hemoglobin 30.8 , Mean Corpuscular Hemoglobin Concent 34.4, Red Cell Distribution Width 13.5, Platelet Count 203, Neutrophils (%) (Auto) 55.6, Lymphocytes (%) (Auto) 34.4, Monocytes (%) (Auto) 6.0H, Eosinophils (%) (Auto) 1.6, Basophils (%) (Auto) 0.5 , Neutrophils # (Auto) 2.6, Lymphocytes # (Auto) 1.7, Monocytes # (Auto) 0.3, Eosinophils # (Auto) 0.1, Basophils # (Auto) 0.0, Blood Urea Nitrogen 15, Creatinine 0.74, Sodium Level 144, Potassium Level 4.1, Chloride Level 109H, Carbon Dioxide Level 27, Calcium Level 8.5, Glomerular Filtration Rate > 60.0, Large Unclassified Cells # 0.1, Large Unclassified Cells % 1.9, Thyroid Stimulating Hormone (TSH) 1.780 CBC/BMP Laboratory Tests 10/14/16 06:33 Calcium Level 8.5, Red Blood Count 4.25, Mean Corpuscular Volume 89.4, Mean Corpuscular Hemoglobin 30.8, Mean Corpuscular Hemoglobin Concent 34.4, Red Cell Distribution Width 13.5, Neutrophils (%) (Auto) 55.6, Lymphocytes (%) (Auto) 34.4, Monocytes (%) (Auto) 6.0 H, Eosinophils (%) (Auto) 1.6, Basophils (%) ( Auto) 0.5, Neutrophils # (Auto) 2.6, Lymphocytes # (Auto) 1.7, Monocytes # (Auto ) 0.3, Eosinophils # (Auto) 0.1, Basophils # (Auto) 0.0 CASH REA MD Oct 14, 2016 23:03
[2016-10-14] MEDS: HEPARIN SOD (PORCINE) 5000 UNITS/ML VIAL SQ SCH (23:39)
[2016-10-15] VITALS: BP 95/60
[2016-10-15 04:00] VITALS: BP 105/60
[2016-10-15] MEDS: SLF 3 ML SYR IV SCH ×3 (05:59→21:21)
[2016-10-15] MEDS: HEPARIN SOD (PORCINE) 5000 UNITS/ML VIAL SQ SCH ×3 (05:59→21:21)
[2016-10-15 08:00] VITALS: BP 107/61
--- NOTE | 2016-10-15 10:27 | IPNPDOC ---
Subjective Date Seen The patient was seen on 10/15/16. Subjective Chief Complaint/HPI Pt without new concerns. She is anxious about her low HR. Dr Zendejas did come see her last night. General: Denies: Fatigue Constitutional: Denies: Fever ENT: Denies: Head Aches Pulmonary: Denies: Cough, Dyspnea Cardiovascular: Denies: Chest Pain, Palpitations Gastrointestinal: Denies: Diarrhea, Nausea, Vomiting Psych: Reports: Mood Normal Objective Physical Examination General Exam: Positive: Alert, Cooperative, No Acute Distress Eye Exam: Positive: Conjunctiva & lids normal, PERRLA ENT Exam: Positive: Mucous membr. moist/pink Neck Exam: Positive: Supple, Negative: JVD, thyromegaly Chest Exam: Positive: Clear to auscultation, Normal air movement, Negative: Rales, Rhonchi, Wheezing Heart Exam: Positive: Bradycardic, Normal S1, Normal S2, Regular Rhythm, Negative: Rate Normal Telemetry: Positive: Bradycardia, Other Telemetry: (No [place] prolongation, 2nd degree block), Sinus Abdomen Exam: Positive: Normal bowel sounds, Soft, Negative: Hepatospenomegaly, Tenderness Extremity Exam: Positive: Normal pulses, Negative: Clubbing, Cyanosis, Edema Psych Exam: Positive: Mental status NL, Mood NL Assessment /Plan Problems (1) Sinus bradycardia Status: Chronic Response to Treatment: Stable Problem Text: 10/15 - Remains on tele, HR into the 40s overnight. Lyme titre pending. TSH nl 10/14 - On tele. Trops neg. EKG shows no block. Hx of normal TSH, although will recheck as pt reports general fatigue. Lyme myocarditis unlikely, but pt does have dogs and spends time outside. - TSH - lyme screening - cardiology consulted, Aashish - Echo read pending (2) Chest pain Status: Acute Problem Text: None currently. Trops negative. Borderline poor R-R progression on EKG. (3) Hx of gastric bypass Status: Acute Problem Text: On supplements. Sleeve gastrectomy. Poss dumping syndrome sx, although pt reports being compliant with dietary recs to avoid this. Plan/VTE VTE Prophylaxis Ordered?: Yes VS, I&O, 24H, Fishbone Vital Signs/I&O Vital Signs Date Time Temp Pulse Resp B/P Pulse Ox O2 Delivery O2 Flow Rate FiO2 10/15/16 08:00 97.1 54 18 107/61 98 Room Air I&O- Last 24 Hours up to 6 AM 10/15/16 05:59 Intake Total 1920 ml Output Total 600 ml Balance 1320 ml BRYCE URENA PA-C Oct 15, 2016 10:27
[2016-10-15 12:00] VITALS: BP 104/61
[2016-10-15 16:00] VITALS: BP 111/62
[2016-10-15 20:00] VITALS: BP 108/55
[2016-10-15] MEDS: MONTELUKAST 10 MG TAB PO SCH (21:21)
[2016-10-15] MEDS: diphenhydrAMINE 25 MG CAP PO PRN (21:21)
[2016-10-15] MEDS: GABAPENTIN 300 MG CAP PO SCH (21:21)
--- NOTE | 2016-10-15 21:58 | EDDOCDS ---
Physician Documentation [facility] Name: Deyanira Whiteside Age: 51 yrs Sex: Female : 1965 Arrival Date: 10/13/2016 Time: 09:33 Bed OBSERVATION Private MD: Estephania Bhat NP Disposition: 10/13/16 18:42 Hospitalization ordered by Sruthi Andrea for Inpatient Admission. Preliminary diagnosis are Bradycardia, unspecified, Other chest pain. - Bed requested for [facility] ([facility]). - Status is Inpatient Admission. cf2 - Condition is Stable. - Problem is new. - Symptoms have improved. Historical: - Allergies: Ultracet (disoriented); - Home Meds: 1. Gabapentin 150mg Oral nightly 2. trazodone 100 mg oral tab nightly 3. montelukast 10 mg oral tab 1 tab once daily 4. Calcium + Vitamin D 600 mg calcium- 200 unit Oral tab three times a day 5. Flintstones Complete (iron) oral chew daily 6. vitamin [id number] acid 1-0.8 mg oral tab daily - PMHx: anxiety with agoraphobia; Fibromyalgia; PTSD; - PSHx: gastric sleeve; ganglion cyst removal; ; Tubal ligation; - Social history: Smoking status: Patient states was never smoker of tobacco. No barriers to communication noted, The patient speaks fluent Tanzanian, Speaks appropriately for age. - Family history: Not pertinent. - : The pt / caregiver states he / she is not on anticoagulants. Home medication list is obtained from the patient. - Exposure Risk Screening:: None identified. CONSULTANT INTERNSHIP: 10/13 20:52 LMP N/A - control method cf2 Vital Signs: 09:34 BP 120 / 65; Pulse 59; Resp 16; Temp 96.5(O); Pulse Ox 100% on R/A; Weight 79.83 kg / lr2 176 lbs (R); Height 5 ft. 2 in. (157.48 cm) (R); Pain 2/10; 10:20 BP 117 / 68 Supine; Pulse 54; ck1 10:20 BP 109 / 63 Sitting; Pulse 56; ck1 10:20 BP 117 / 71 Standing; Pulse 62; ck1 12:59 BP 117 / 70 (auto/); ck1 13:01 Pulse 54 MON; Pulse Ox 100% ; ck1 13:14 BP 128 / 75 (auto/); ck1 13:15 Pulse 56 MON; Pulse Ox 99% ; ck1 13:29 BP 109 / 60 (auto/); ck1 13:30 Pulse 54 MON; Pulse Ox 98% ; ck1 13:44 BP 106 / 61 (auto/); ck1 13:45 Pulse 52 MON; Pulse Ox 98% ; ck1 13:45 Resp 18; Temp 97.2(O); ck1 13:59 BP 87 / 52 (auto/); ck1 14:00 Pulse 54 MON; Pulse Ox 98% ; ck1 14:14 BP 93 / 53 (auto/); ck1 14:15 Pulse 54 MON; Pulse Ox 98% ; ck1 14:59 BP 106 / 60 (auto/); ck1 14:59 Pulse 48 MON; Pulse Ox 96% ; ck1 15:15 BP 114 / 69 (auto/); ck1 15:17 Pulse 50 MON; Pulse Ox 98% ; ck1 15:30 BP 120 / 56 (auto/); ck1 15:31 Pulse 48 MON; Pulse Ox 98% ; ck1 15:45 BP 105 / 59 (auto/); ck1 15:46 Pulse 48 MON; Pulse Ox 99% ; ck1 16:00 BP 115 / 58 (auto/); ck1 16:00 Pulse 44 MON; Pulse Ox 98% ; ck1 16:15 BP 120 / 61 (auto/); ck1 16:15 Pulse 44 MON; Pulse Ox 99% ; ck1 16:30 BP 116 / 62 (auto/); ck1 16:30 Pulse 42 MON; Pulse Ox 99% ; ck1 16:45 BP 114 / 63 (auto/); ck1 16:45 Pulse 46 MON; ck1 17:00 BP 109 / 57 (auto/); ck1 17:00 Pulse 44 MON; ck1 17:15 BP 105 / 62 (auto/); ck1 17:15 Pulse 46 MON; Pulse Ox 99% ; ck1 17:30 BP 105 / 63 (auto/); ck1 17:30 Pulse 48 MON; Pulse Ox 98% ; ck1 17:45 BP 102 / 68 (auto/); ck1 17:45 Pulse 52 MON; Pulse Ox 97% ; ck1 18:00 BP 98 / 67 (auto/); ck1 18:00 Pulse 58 MON; Pulse Ox 97% ; ck1 18:09 Resp 18; Temp 97.5(O); ck1 19:12 Pulse 44 MON; Pulse Ox 99% ; cf2 19:12 BP 101 / 62; Pulse 64; Resp 16; Temp 98.0; Pain 0/10; cf2 19:13 Pulse 54 MON; cf2 19:14 Pulse 56 MON; cf2 19:20 Pulse 62 MON; cf2 19:24 Pulse 62 MON; cf2 19:28 Pulse 62 MON; cf2 19:35 Pulse Ox 98% ; cf2 19:37 Pulse Ox 99% ; cf2 19:43 Pulse Ox 99% ; cf2 19:50 Pulse Ox 99% ; cf2 19:57 Pulse Ox 99% ; cf2 20:06 Pulse Ox 99% ; cf2 20:13 Pulse Ox 99% ; cf2 20:19 Pulse Ox 98% ; cf2 20:24 Pulse Ox 97% ; cf2 20:30 Pulse Ox 98% ; cf2 20:36 Pulse Ox 98% ; cf2 20:43 Pulse Ox 97% ; cf2 20:49 Pulse Ox 98% ; cf2 09:34 Body Mass Index 32.19 (79.83 kg, 157.48 cm) lr2 MDM: 09:39 ECG WITH READING ER PHYS+CARDIAG ordered. EDMS 09:41 Sulky Driver/Pulse Ox/q 30 min VS ordered. sd1 09:41 IV Saline Lock ordered. sd1 09:41 Rhythm Strip to chart ordered. sd1 09:41 Undress patient appropriately for examination ordered. sd1 09:42 Basic Metabolic Profile Ordered. EDMS 09:42 CBC with Diff Ordered. EDMS 09:42 Cardiac Injury Profile Ordered. EDMS 09:42 Troponin Ordered. EDMS 09:42 portable chest Ordered. EDMS 10:15 Orthostatic VS ordered. sd1 10:15 NS 0.9% 1000 ml IV at bolus once ordered. sd1 10:16 D-Dimer Quant Ordered. EDMS 10:38 [facility] [place] was scanned into [employer] and attached to record. jp5 10:38 Financial registration complete. jp5 10:42 Basic Metabolic Profile Reviewed. sd1 10:42 CBC with Diff Reviewed. sd1 10:42 Cardiac Injury Profile Reviewed. sd1 10:42 Troponin Reviewed. sd1 10:42 D-Dimer Quant Reviewed. sd1 10:42 portable chest Reviewed. sd1 12:02 Redraw CIP &Troponin (put time in details section) ordered. sd1 12:03 Repeat EKG (put time details section) ordered. sd1 12:23 CARDIAC INJURY PROFILE Ordered. EDMS 12:23 TROPONIN Ordered. EDMS 12:24 ELECTROCARDIOGRAM ADULT ordered. EDMS 12:24 Repeat EKG (put time details section) complete. jrd 12:24 Redraw CIP &Troponin (put time in details section) complete. jrd 15:01 CARDIAC INJURY PROFILE Reviewed. sd1 15:01 TROPONIN Reviewed. sd1 15:06 Misc. Nursing Order ordered. sd1 18:43 REGULAR+DIET ordered. EDMS 19:44 BASIC METABOLIC PROFILE Ordered. EDMS 19:44 CBC WITH DIFFERENTIAL Ordered. EDMS 19:45 Admission / Observation Status ordered. EDMS 19:45 ECHOCARD,DOPPLER/COLOR FLOW ordered. EDMS 19:45 ELECTROCARDIOGRAM ADULT ordered. EDMS 19:45 NO ADDED SALT DIET ordered. [facility] 10/14 10:42 T-Sheet-- Draft Copy was scanned into [employer] and attached to record. gb 10:42 ECG/EKG was scanned into [employer] and attached to record. gb Administered Medications: 10/13 10:25 Drug: NS 0.9% 1000 ml [sodium chloride 0.9 % intravenous solution] Route: IV; Rate: ck1 bolus; Site: left antecubital; 13:41 Follow up: IV Status: Completed infusion ck1 Signatures: Dispatcher [employer] [facility] Myrtle Burgess MD MD sd1 Trista Pena, RN RN [facility]Ritu RN Trupti Salamanca, Reg Reg gb Angelica FordRN RN ck1 Luis Alberto Machuca, PATROL SERGEANT PATROL SERGEANT dm5 Nikolas Almeida, PATROL SERGEANT PATROL SERGEANT Shawn Villanueva jp5 Noemy Lombardi,RN RN cf2 The chart was reviewed and I authenticate all verbal orders and agree with the evaluation and treatment provided.Attachments: 10:38 [facility] Payment Agreement [facility] 10/14 10:42 T-Sheet-- Draft Copy gb 10:42 ECG/EKG gb Chart Complete MTDD
--- NOTE | 2016-10-15 21:58 | EDDOCDS ---
Nurse's Notes [facility] Name: Deyanira Whiteside Age: 51 yrs Sex: Female : 1965 Arrival Date: 10/13/2016 Time: 09:33 Bed OBSERVATION Private MD: Estephania Baht NP Diagnosis: Bradycardia, unspecified;Other chest pain Presentation: 10/13 09:40 Presenting complaint: Patient states: chest pain and tingling feweling in chest and srm left ar. lightheaded for a few days. SOB with Chest pain. nause. Presenting complaint: Patient states: symptoms started at 0600. Presenting complaint: Patient states: legs felt numb and tingling this am and she thought shew was going to fall down. Aspirin was not taken prior to arrival. Adult Sepsis Screening: The patient does not have new or worsening altered mentation. Patient's respiratory rate is less than 22. Systolic blood pressure is greater than 100. Patient has a qSOFA score of 0- Negative Sepsis Screen. Suicide/Homicide risk assessment- the patient denies having any suicidal and/or homicidal ideations and does not present with any other emotional, behavioral or mental health complaints. Status: Patient is not a field service engineer or dependent. Transition of care: patient was not received from another setting of care. 09:40 Acuity: WHIT Level 2 srm 09:40 Method Of Arrival: Wheelchair srm 09:46 Red Flag criteria, patient assessed and taken directly to a bed. srm 09:47 Presenting complaint: Patient states: also swelling to legs and feet. nausea. [facility] Triage Assessment: 09:45 General: Appears in no apparent distress, Behavior is appropriate for age, cooperative. srm Pain: Location: left arm Pain currently is 5 out of 10 on a pain scale. Cardiovascular: Chest pain is described as Pain is 10 out of 10 on a pain scale. radiates to left arm(s) episodes are intermittent began 3.5 hours ago. 10:06 HIV screening NA for this visit Offered previously. 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 Gabapentin 150mg Oral nightly 2. trazodone 100 mg oral tab nightly 3. montelukast 10 mg oral tab 1 tab once daily 4. Calcium + Vitamin D 600 mg calcium- 200 unit Oral tab three times a day 5. Flintstones Complete (iron) oral chew daily 6. vitamin [id number] acid 1-0.8 mg oral tab daily - PMHx: anxiety with agoraphobia; Fibromyalgia; PTSD; - PSHx: gastric sleeve; ganglion cyst removal; ; Tubal ligation; - Social history: Smoking status: Patient states was never smoker of tobacco. No barriers to communication noted, The patient speaks fluent [place], Speaks appropriately for age. - Family history: Not pertinent. - : The pt / caregiver states he / she is not on anticoagulants. Home medication list is obtained from the patient. - Exposure Risk Screening:: None identified. Screenin:04 Screening information is obtained from the patient. Fall risk: No risks identified. ck1 Assistance ADL's: requires no assistance with activities of daily living. Abuse/DV Screen: The patient / caregiver reports he/she is: not in a situation that causes fear, pain or injury. Nutritional screening: No deficits noted. Advance Directives: Currently, there is no health care proxy. home support is adequate. Assessment: 10:05 General: Appears in no apparent distress, comfortable, Behavior is anxious, ck1 cooperative. Pain: Location: chest Pain currently is 7 out of 10 on a pain scale. Neurological: Level of Consciousness is awake, alert, obeys commands, Oriented to person, place, time. Cardiovascular: Rhythm is sinus bradycardia. Respiratory: Respiratory effort is unlabored, Respiratory pattern is regular, symmetrical. GI: No deficits noted. Derm: Skin is intact, is healthy with good turgor, Skin is pink, warm & dry. 11:05 Reassessment: Patient appears in no apparent distress at this time. ck1 12:05 General: Appears in no apparent distress, comfortable, Behavior is appropriate for age, ck1 cooperative. Pain: Location: chest Pain currently is 5 out of 10 on a pain scale. Neurological: Level of Consciousness is awake, alert, obeys commands, Oriented to person, place, time. Cardiovascular: Rhythm is sinus bradycardia. Respiratory: Respiratory effort is unlabored, Respiratory pattern is regular, symmetrical. Derm: Skin is pink, warm & dry. 13:01 General: Patient is resting quietly on stretcher eating lunch. No acute distress noted ck1 at this time. States chest pain as improved to 5/10. No acute distress noted, respiration easy and unlabored. Family members at bedside, call light in reach. patient aware of repeat lab work and EKG at 1400. Will continue to monitor patient. 14:00 General: Appears in no apparent distress, comfortable, Behavior is appropriate for age, ck1 cooperative. Pain: Location: chest Pain currently is 5 out of 10 on a pain scale. Quality of pain is described as pressure. Neurological: Level of Consciousness is awake, alert, obeys commands, Oriented to person, place, time. Cardiovascular: Rhythm is sinus bradycardia. Respiratory: Respiratory effort is unlabored, Respiratory pattern is regular, symmetrical. GI: No deficits noted. Derm: Skin is intact, is healthy with good turgor, Skin is pink, warm & dry. Musculoskeletal: Range of motion intact in all extremities. 14:45 Reassessment: Patient appears in no apparent distress at this time. ck1 15:15 General: Patient attempted ambulation. Gait unsteady, reports feeling dizzy and ck1 lightheaded. Assisted back to bed, positioned for comfort. Call light in reach, family members at bedside. Dr. Ortega aware. 16:18 Reassessment: Patient appears in no apparent distress at this time. Neurological: Level ck1 of Consciousness is awake, alert, obeys commands, Oriented to person, place, time, Reports dizziness. Cardiovascular: Rhythm is sinus bradycardia. Respiratory: Respiratory effort is unlabored, Respiratory pattern is regular, symmetrical. GI: No deficits noted. Derm: Skin is pink, warm & dry. 17:14 General: Appears in no apparent distress, comfortable, Behavior is appropriate for age, ck1 cooperative. Pain: Location: chest Pain currently is 5 out of 10 on a pain scale. Quality of pain is described as pressure. Neurological: Level of Consciousness is awake, alert, obeys commands, Oriented to person, place, time. Cardiovascular: Rhythm is sinus bradycardia. Respiratory: Respiratory effort is unlabored, Respiratory pattern is regular, symmetrical. GI: No deficits noted. Derm: Skin is intact, is healthy with good turgor, Skin is pink, warm & dry. Musculoskeletal: Range of motion intact in all extremities. 18:12 General: Patient sitting up to side of bed, states dizziness has improved. No acute ck1 distress noted. Cardiac rhythm NSR. Vital Signs: 09:34 BP 120 / 65; Pulse 59; Resp 16; Temp 96.5(O); Pulse Ox 100% on R/A; Weight 79.83 kg lr2 (R); Height 5 ft. 2 in. (157.48 cm) (R); Pain 2/10; 10:20 BP 117 / 68 Supine; Pulse 54; ck1 10:20 BP 109 / 63 Sitting; Pulse 56; ck1 10:20 BP 117 / 71 Standing; Pulse 62; ck1 12:59 BP 117 / 70 (auto/); ck1 13:01 Pulse 54 MON; Pulse Ox 100% ; ck1 13:14 BP 128 / 75 (auto/); ck1 13:15 Pulse 56 MON; Pulse Ox 99% ; ck1 13:29 BP 109 / 60 (auto/); ck1 13:30 Pulse 54 MON; Pulse Ox 98% ; ck1 13:44 BP 106 / 61 (auto/); ck1 13:45 Pulse 52 MON; Pulse Ox 98% ; ck1 13:45 Resp 18; Temp 97.2(O); ck1 13:59 BP 87 / 52 (auto/); ck1 14:00 Pulse 54 MON; Pulse Ox 98% ; ck1 14:14 BP 93 / 53 (auto/); ck1 14:15 Pulse 54 MON; Pulse Ox 98% ; ck1 14:59 BP 106 / 60 (auto/); ck1 14:59 Pulse 48 MON; Pulse Ox 96% ; ck1 15:15 BP 114 / 69 (auto/); ck1 15:17 Pulse 50 MON; Pulse Ox 98% ; ck1 15:30 BP 120 / 56 (auto/); ck1 15:31 Pulse 48 MON; Pulse Ox 98% ; ck1 15:45 BP 105 / 59 (auto/); ck1 15:46 Pulse 48 MON; Pulse Ox 99% ; ck1 16:00 BP 115 / 58 (auto/); ck1 16:00 Pulse 44 MON; Pulse Ox 98% ; ck1 16:15 BP 120 / 61 (auto/); ck1 16:15 Pulse 44 MON; Pulse Ox 99% ; ck1 16:30 BP 116 / 62 (auto/); ck1 16:30 Pulse 42 MON; Pulse Ox 99% ; ck1 16:45 BP 114 / 63 (auto/); ck1 16:45 Pulse 46 MON; ck1 17:00 BP 109 / 57 (auto/); ck1 17:00 Pulse 44 MON; ck1 17:15 BP 105 / 62 (auto/); ck1 17:15 Pulse 46 MON; Pulse Ox 99% ; ck1 17:30 BP 105 / 63 (auto/); ck1 17:30 Pulse 48 MON; Pulse Ox 98% ; ck1 17:45 BP 102 / 68 (auto/); ck1 17:45 Pulse 52 MON; Pulse Ox 97% ; ck1 18:00 BP 98 / 67 (auto/); ck1 18:00 Pulse 58 MON; Pulse Ox 97% ; ck1 18:09 Resp 18; Temp 97.5(O); ck1 19:12 Pulse 44 MON; Pulse Ox 99% ; cf2 19:12 BP 101 / 62; Pulse 64; Resp 16; Temp 98.0; Pain 0/10; cf2 19:13 Pulse 54 MON; cf2 19:14 Pulse 56 MON; cf2 19:20 Pulse 62 MON; cf2 19:24 Pulse 62 MON; cf2 19:28 Pulse 62 MON; cf2 19:35 Pulse Ox 98% ; cf2 19:37 Pulse Ox 99% ; cf2 19:43 Pulse Ox 99% ; cf2 19:50 Pulse Ox 99% ; cf2 19:57 Pulse Ox 99% ; cf2 20:06 Pulse Ox 99% ; cf2 20:13 Pulse Ox 99% ; cf2 20:19 Pulse Ox 98% ; cf2 20:24 Pulse Ox 97% ; cf2 20:30 Pulse Ox 98% ; cf2 20:36 Pulse Ox 98% ; cf2 20:43 Pulse Ox 97% ; cf2 20:49 Pulse Ox 98% ; cf2 09:34 Body Mass Index 32.19 (79.83 kg, 157.48 cm) lr2 Vitals: 09:34 Log In Time: October 13, 2016 at 09:33. lr2 09:36 RN notified that patient meets Red Flag criteria. lr2 ED Course: 09:34 Patient visited by Ami Hammonds. lr2 09:34 Patient moved to Waiting lr2 09:35 Estephania Bhat is Private Physician. lr2 09:36 Patient moved to Pre RCE lr2 09:40 Ray Angulo,DANIEL is Primary Nurse. srm 09:40 Angelica Ford,RN is Primary Nurse. srm 09:40 Patient moved to 7 srm 09:43 Triage Initiated srm 09:43 EKG done. (by ED staff). Reviewed by Myrtle Burgess MD. nb2 09:47 Patient visited by Riat Garvin. nb2 09:47 Patient visited by Trista Pena, DANIEL. srm 09:47 The patient / caregiver is instructed regarding the plan of care and ED course. Patient srm has correct armband on for positive identification. Placed in gown. Bed in low position. Call light in reach. dental assistant on. Pulse ox on. NIBP on. 10:04 Myrtle Burgess MD is Attending Physician. sd1 10:04 Patient visited by Angelica Ford,DANIEL. ck1 10:04 Basic Metabolic Profile Sent. ck1 10:04 CBC with Diff Sent. ck1 10:04 Cardiac Injury Profile Sent. ck1 10:04 Troponin Sent. ck1 10:04 Inserted saline lock: 20 gauge in left antecubital area and blood collected. The ck1 patient tolerated the procedure well. 10:05 Patient visited by Myrtle Burgess MD. sd1 10:11 portable chest Returned. EDMS 10:17 D-Dimer Quant Sent. ck1 10:20 Patient visited by Angelica Ford,DANIEL. ck1 10:25 Patient visited by Angelica Ford,DANIEL. ck1 10:38 [facility] Payment Agreement was scanned into [employer] and attached to record. jp5 10:58 Patient moved to OBSERVATION sd1 14:15 TROPONIN Sent. ck1 14:15 CARDIAC INJURY PROFILE Sent. ck1 14:29 Patient visited by Rita Garvin. nb2 14:29 EKG done. (by ED staff). Reviewed by Myrtle Burgess MD. nb2 18:41 Sruthi Andrea is Hospitalizing Provider. sd1 18:50 Primary Nurse role handed off by Angelica Ford,DANIEL ck1 19:10 Primary Nurse role handed off by Ray Angulo RN cf2 19:10 Noemy Lombardi,DANIEL is Primary Nurse. cf2 19:11 Patient visited by Noemy Lombardi RN. cf2 20:04 Patient visited by Noemy Lombardi,DANIEL. cf2 20:22 Patient visited by Noemy Lombardi,DANIEL. cf2 20:50 Patient visited by Noemy Lombardi,DANIEL. cf2 20:51 No procedures done that require assistance. cf2 10/14 10:42 T-Sheet-- Draft Copy was scanned into [employer] and attached to record. gb 10:42 ECG/EKG was scanned into [employer] and attached to record. gb Administered Medications: 10/13 10:25 Drug: NS 0.9% 1000 ml [sodium chloride 0.9 % intravenous solution] Route: IV; Rate: ck1 bolus; Site: left antecubital; 13:41 Follow up: IV Status: Completed infusion ck1 Order Results: Lab Order: Basic Metabolic Profile; SPEC'M 10/13/16 10:03 Test: GLUCOSE, FASTING; Value: 91; Range: 70-105; Units: MG/DL; Status: F Test: BLOOD UREA NITROGEN; Value: 15; Range: 7-18; Units: MG/DL; Status: F Test: CREATININE FOR GFR; Value: 0.75; Range: 0.55-1.02; Units: MG/DL; Status: F Test: GLOMERULAR FILTRATION RATE; Value: > 60.0; Range: >58; Status: F Test: SODIUM LEVEL; Value: 142; Range: 136-145; Units: MEQ/L; Status: F Test: POTASSIUM SERUM; Value: 3.9; Range: 3.5-5.1; Units: MEQ/L; Status: F Test: CHLORIDE LEVEL; Value: 107; Range: 98-107; Units: MEQ/L; Status: F Test: CARBON DIOXIDE LEVEL; Value: 28; Range: 21-32; Units: MEQ/L; Status: F Test: ANION GAP; Value: 7; Range: 8-16; Abnormal: Below low normal; Units: MEQ/L; Status: F Test: CALCIUM LEVEL; Value: 8.6; Range: 8.5-10.1; Units: MG/DL; Status: F Test Note: ; Units are mL/min/1.73 m2 Chronic Kidney Disease Staging per NKF: Stage I & II GFR >=60 Normal to Mildly Decreased Stage III GFR 30-59 Moderately Decreased Stage IV GFR 15-29 Severely Decreased Stage V GFR <15 Very Little GFR Left ESRD GFR <15 on RECORDS OFFICER Lab Order: CBC with Diff; SPEC'M 10/13/16 10:03 Test: WHITE BLOOD COUNT; Value: 5.4; Range: 4.0-10.0; Units: K/mm3; Status: F Test: RED BLOOD COUNT; Value: 4.37; Range: 4.00-5.40; Units: M/mm3; Status: F Test: HEMOGLOBIN; Value: 13.2; Range: 12.0-16.0; Units: g/dl; Status: F Test: HEMATOCRIT; Value: 38.1; Range: 36.0-47.0; Units: %; Status: F Test: MEAN CORPUSCULAR VOLUME; Value: 87.2; Range: 80.0-96.0; Units: fl; Status: F Test: MEAN CORPUSCULAR HEMOGLOBIN; Value: 30.1; Range: 27.0-33.0; Units: pg; Status: F Test: MEAN CORPUSCULAR HGB CONC; Value: 34.5; Range: 32.0-36.5; Units: g/dl; Status: F Test: RED CELL DISTRIBUTION WIDTH; Value: 13.3; Range: 11.5-14.5; Units: %; Status: F Test: PLATELET COUNT, AUTOMATED; Value: 202; Range: 150-450; Units: k/mm3; Status: F Test: NEUTROPHILS %; Value: 62.7; Range: 36.0-66.0; Units: %; Status: F Test: LYMPH %; Value: 30.5; Range: 24.0-44.0; Units: %; Status: F Test: MONO %; Value: 3.7; Range: 0.0-5.0; Units: %; Status: F Test: EOS %; Value: 0.8; Range: 0.0-3.0; Units: %; Status: F Test: BASO %; Value: 0.4; Range: 0.0-1.0; Units: %; Status: F Test: LARGE UNSTAINED CELL %; Value: 1.9; Range: 0.0-4.0; Units: %; Status: F Test: NEUTROPHILS #; Value: 3.4; Range: 1.8-7.7; Units: K/mm3; Status: F Test: LYMPH #; Value: 1.6; Range: 1.5-4.5; Units: K/mm3; Status: F Test: MONO #; Value: 0.2; Range: 0.0-0.8; Units: K/mm3; Status: F Test: EOS #; Value: 0.0; Range: 0.0-0.50; Units: K/mm3; Status: F Test: BASO #; Value: 0.0; Range: 0.0-0.2; Units: K/mm3; Status: F Test: LARGE UNSTAINED CELL #; Value: 0.1; Range: 0.0-0.4; Units: K/mm3; Status: F Lab Order: Cardiac Injury Profile; [facility] 10/13/16 10:03 Test: CPK CREATINE PHOSPHOKINASE; Value: 60; Range: 26-192; Units: U/L; Status: F Test: CK-MB VALUE MASS; Value: 1.0; Range: 0.0-3.6; Units: NG/ML; Status: F Test: MB/CK RELATIVE INDEX; Value: 1.66; Range: < OR =4; Status: F Test Note: ; DIAGNOSIS CRITERIA MMB ng/ml Relative Index (RI) NON-AMI < or = 5 N/A BRITTON ZONE > 5 < or = 4 AMI > 5 > 4 Lab Order: Troponin; [facility] 10/13/16 10:03 Test: TROPONIN I; Value: < 0.02; Range: < 0.10; Units: NG/ML; Status: F Test Note: ; Troponin I Reference Interval for [employer] LOCI: 99th Percentile= 0.00-0.045 ng/ml Risk Stratification: <= 0.10 ng/ml Decreased Risk for Adverse Clinical Events. 0.10-1.50 ng/ml Increased Risk for Adverse Clinical Events. Evaluation of additional criterion and/or repeat testing in 2-6 hours is suggested to rule out myocardial damage. >= 1.50 ng/ml Indicative of Myocardial Injury. Lab Order: D-Dimer Quant; [facility] 10/13/16 10:02 Test: D-DIMER QUANT; Value: < 270.0; Range: <500; Units: ng/ml; Status: F Lab Order: CARDIAC INJURY PROFILE; SPEC'M 10/13/16 14:15 Test: CPK CREATINE PHOSPHOKINASE; Value: 49; Range: 26-192; Units: U/L; Status: F Test: CK-MB VALUE MASS; Value: 1.0; Range: 0.0-3.6; Units: NG/ML; Status: F Test: MB/CK RELATIVE INDEX; Value: 2.04; Range: < OR =4; Status: F Test Note: ; DIAGNOSIS CRITERIA MMB ng/ml Relative Index (RI) NON-AMI < or = 5 N/A BRITTON ZONE > 5 < or = 4 AMI > 5 > 4 Lab Order: TROPONIN; SPEC'M 10/13/16 14:15 Test: TROPONIN I; Value: < 0.02; Range: < 0.10; Units: NG/ML; Status: F Test Note: ; Troponin I Reference Interval for [employer] LOCI: 99th Percentile= 0.00-0.045 ng/ml Risk Stratification: <= 0.10 ng/ml Decreased Risk for Adverse Clinical Events. 0.10-1.50 ng/ml Increased Risk for Adverse Clinical Events. Evaluation of additional criterion and/or repeat testing in 2-6 hours is suggested to rule out myocardial damage. >= 1.50 ng/ml Indicative of Myocardial Injury. Radiology Order: portable chest Test: portable chest REASON FOR EXAMINATION: Chest Pain; Clinical: Chest pain .; ; Comparison: 02/12/2015 .; ; Findings:; The mediastinum and cardiac silhouette are stable and within normal limits for; portable technique. The lung fregoso are clear without acute consolidation,; effusion, or pneumothorax. Skeletal structures are intact.; ; Impression:; Normal portable chest x-ray; ; ; Signed by; Yobany Prado MD 10/13/2016 09:57 A; Outcome: 18:42 Decision to Hospitalize by Provider. sd1 20:52 Discharge Assessment: Patient awake, alert and oriented x 3. No cognitive and/or cf2 functional deficits noted. Patient verbalized understanding of disposition instructions. Patient awake and alert. Oriented to person, place and time. patient administered narcotics - no. The following High Risk Discharge criteria are identified: None. Admitted to PCU. Condition: stable. No special radiology studies were completed. Property :Personal belongings accompany Pt. 20:57 Patient left the ED. cf2 Signatures: Dispatcher [employer] EDMyrtle Do MD MD sd1 Trista Pena, RN RN [facility] Che, Trupti, Reg Reg nico Rahmanaft,AngelicaRN RN ck1 Shawn Copeland jp5 Noemy LombardiRN DANIEL cf2 Rita Garvin2 Ami Hammonds lr2 Corrections: (The following items were deleted from the chart) 18:12 18:09 General: Appears in no apparent distress, comfortable, Behavior is appropriate ck for age, cooperative, ck 18: 18:09 Neurological: Reports dizziness, ck ck1 18: 18:09 Pain: Location: chest Pain currently is 5 out of 10 on a pain scale. ck1 ck1 18: 18:09 Cardiovascular: Rhythm is [facility] 18: 18:09 Respiratory: Respiratory effort is unlabored, Respiratory pattern is regular, ck1 symmetrical, ck1 18: 18:09 Derm: Skin is intact, is healthy with good turgor, Skin is pink, warm & dry. [facility] Chart Complete MTDD
--- NOTE | 2016-10-15 21:58 | EDDOCDS ---
Physician Documentation [facility] Name: Deyanira Whiteside Age: 51 yrs Sex: Female : 1965 Arrival Date: 10/13/2016 Time: 09:33 Bed OBSERVATION Private MD: Estephania Bhat NP Disposition: 10/13/16 18:42 Hospitalization ordered by Sruthi Andrea for Inpatient Admission. Preliminary diagnosis are Bradycardia, unspecified, Other chest pain. - Bed requested for [facility] (Formerly [facility]). - Status is Inpatient Admission. cf2 - Condition is Stable. - Problem is new. - Symptoms have improved. Historical: - Allergies: Ultracet (disoriented); - Home Meds: 1. Gabapentin 150mg Oral nightly 2. trazodone 100 mg oral tab nightly 3. montelukast 10 mg oral tab 1 tab once daily 4. Calcium + Vitamin D 600 mg calcium- 200 unit Oral tab three times a day 5. Flintstones Complete (iron) oral chew daily 6. vitamin [id number] acid 1-0.8 mg oral tab daily - PMHx: anxiety with agoraphobia; Fibromyalgia; PTSD; - PSHx: gastric sleeve; ganglion cyst removal; ; Tubal ligation; - Social history: Smoking status: Patient states was never smoker of tobacco. No barriers to communication noted, The patient speaks fluent Kosovan, Speaks appropriately for age. - Family history: Not pertinent. - : The pt / caregiver states he / she is not on anticoagulants. Home medication list is obtained from the patient. - Exposure Risk Screening:: None identified. 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 2 in. (157.48 cm) (R); Pain 2/10; 10:20 BP 117 / 68 Supine; Pulse 54; ck1 10:20 BP 109 / 63 Sitting; Pulse 56; ck1 10:20 BP 117 / 71 Standing; Pulse 62; ck1 12:59 BP 117 / 70 (auto/); ck1 13:01 Pulse 54 MON; Pulse Ox 100% ; ck1 13:14 BP 128 / 75 (auto/); ck1 13:15 Pulse 56 MON; Pulse Ox 99% ; ck1 13:29 BP 109 / 60 (auto/); ck1 13:30 Pulse 54 MON; Pulse Ox 98% ; ck1 13:44 BP 106 / 61 (auto/); ck1 13:45 Pulse 52 MON; Pulse Ox 98% ; ck1 13:45 Resp 18; Temp 97.2(O); ck1 13:59 BP 87 / 52 (auto/); ck1 14:00 Pulse 54 MON; Pulse Ox 98% ; ck1 14:14 BP 93 / 53 (auto/); ck1 14:15 Pulse 54 MON; Pulse Ox 98% ; ck1 14:59 BP 106 / 60 (auto/); ck1 14:59 Pulse 48 MON; Pulse Ox 96% ; ck1 15:15 BP 114 / 69 (auto/); ck1 15:17 Pulse 50 MON; Pulse Ox 98% ; ck1 15:30 BP 120 / 56 (auto/); ck1 15:31 Pulse 48 MON; Pulse Ox 98% ; ck1 15:45 BP 105 / 59 (auto/); ck1 15:46 Pulse 48 MON; Pulse Ox 99% ; ck1 16:00 BP 115 / 58 (auto/); ck1 16:00 Pulse 44 MON; Pulse Ox 98% ; ck1 16:15 BP 120 / 61 (auto/); ck1 16:15 Pulse 44 MON; Pulse Ox 99% ; ck1 16:30 BP 116 / 62 (auto/); ck1 16:30 Pulse 42 MON; Pulse Ox 99% ; ck1 16:45 BP 114 / 63 (auto/); ck1 16:45 Pulse 46 MON; ck1 17:00 BP 109 / 57 (auto/); ck1 17:00 Pulse 44 MON; ck1 17:15 BP 105 / 62 (auto/); ck1 17:15 Pulse 46 MON; Pulse Ox 99% ; ck1 17:30 BP 105 / 63 (auto/); ck1 17:30 Pulse 48 MON; Pulse Ox 98% ; ck1 17:45 BP 102 / 68 (auto/); ck1 17:45 Pulse 52 MON; Pulse Ox 97% ; ck1 18:00 BP 98 / 67 (auto/); ck1 18:00 Pulse 58 MON; Pulse Ox 97% ; ck1 18:09 Resp 18; Temp 97.5(O); ck1 19:12 Pulse 44 MON; Pulse Ox 99% ; cf2 19:12 BP 101 / 62; Pulse 64; Resp 16; Temp 98.0; Pain 0/10; cf2 19:13 Pulse 54 MON; cf2 19:14 Pulse 56 MON; cf2 19:20 Pulse 62 MON; cf2 19:24 Pulse 62 MON; cf2 19:28 Pulse 62 MON; cf2 19:35 Pulse Ox 98% ; cf2 19:37 Pulse Ox 99% ; cf2 19:43 Pulse Ox 99% ; cf2 19:50 Pulse Ox 99% ; cf2 19:57 Pulse Ox 99% ; cf2 20:06 Pulse Ox 99% ; cf2 20:13 Pulse Ox 99% ; cf2 20:19 Pulse Ox 98% ; cf2 20:24 Pulse Ox 97% ; cf2 20:30 Pulse Ox 98% ; cf2 20:36 Pulse Ox 98% ; cf2 20:43 Pulse Ox 97% ; cf2 20:49 Pulse Ox 98% ; cf2 09:34 Body Mass Index 32.19 (79.83 kg, 157.48 cm) lr2 MDM: 09:39 ECG WITH READING ER PHYS+CARDIAG ordered. EDMS 09:41 Medical Service Representative/Pulse Ox/q 30 min VS ordered. sd1 09:41 IV Saline Lock ordered. sd1 09:41 Rhythm Strip to chart ordered. sd1 09:41 Undress patient appropriately for examination ordered. sd1 09:42 Basic Metabolic Profile Ordered. EDMS 09:42 CBC with Diff Ordered. EDMS 09:42 Cardiac Injury Profile Ordered. EDMS 09:42 Troponin Ordered. EDMS 09:42 portable chest Ordered. EDMS 10:15 Orthostatic VS ordered. sd1 10:15 NS 0.9% 1000 ml IV at bolus once ordered. sd1 10:16 D-Dimer Quant Ordered. EDMS 10:38 [facility] Payment Agreement was scanned into [employer] and attached to record. jp5 10:38 Financial registration complete. jp5 10:42 Basic Metabolic Profile Reviewed. sd1 10:42 CBC with Diff Reviewed. sd1 10:42 Cardiac Injury Profile Reviewed. sd1 10:42 Troponin Reviewed. sd1 10:42 D-Dimer Quant Reviewed. sd1 10:42 portable chest Reviewed. sd1 12:02 Redraw CIP &Troponin (put time in details section) ordered. sd1 12:03 Repeat EKG (put time details section) ordered. sd1 12:23 CARDIAC INJURY PROFILE Ordered. EDMS 12:23 TROPONIN Ordered. EDMS 12:24 ELECTROCARDIOGRAM ADULT ordered. EDMS 12:24 Repeat EKG (put time details section) complete. jrd 12:24 Redraw CIP &Troponin (put time in details section) complete. jrd 15:01 CARDIAC INJURY PROFILE Reviewed. sd1 15:01 TROPONIN Reviewed. sd1 15:06 Misc. Nursing Order ordered. sd1 18:43 REGULAR+DIET ordered. EDMS 19:44 BASIC METABOLIC PROFILE Ordered. EDMS 19:44 CBC WITH DIFFERENTIAL Ordered. EDMS 19:45 Admission / Observation Status ordered. EDMS 19:45 ECHOCARD,DOPPLER/COLOR FLOW ordered. EDMS 19:45 ELECTROCARDIOGRAM ADULT ordered. EDMS 19:45 NO ADDED SALT DIET ordered. [facility] [place] 10/14 10:42 T-Sheet-- Draft Copy was scanned into [employer] and attached to record. gb 10:42 ECG/EKG was scanned into [employer] and attached to record. gb Administered Medications: 10/13 10:25 Drug: NS 0.9% 1000 ml [sodium chloride 0.9 % intravenous solution] Route: IV; Rate: ck1 bolus; Site: left antecubital; 13:41 Follow up: IV Status: Completed infusion ck1 Signatures: Dispatcher [employer] [facility] Myrtle Burgess MD MD sd1 Trista Pena, RN RN [facility] Trupti Salamanca, Reg Reg gb Angelica FordRN RN ck1 Luis Alberto Machuca, ENGINEERING GEOLOGIST ENGINEERING GEOLOGIST dm5 Nikolas Almeida, ENGINEERING GEOLOGIST ENGINEERING GEOLOGIST Shawn Villanueva jp5 Noemy Lombardi,RN RN cf2 The chart was reviewed and I authenticate all verbal orders and agree with the evaluation and treatment provided.Attachments: 10:38 [facility] Payment Agreement [facility] 10/14 10:42 T-Sheet-- Draft Copy gb 10:42 ECG/EKG gb Chart Complete MTDD
--- NOTE | 2016-10-15 22:17 | CR ---
DATE OF CONSULTATION: 10/14/2016 PRIMARY CARE PROVIDER: Estephania Bhat NP REASON FOR CONSULT: Chest pain, sinus bradycardia. HISTORY OF PRESENT ILLNESS: 51-year-old woman well known by the office with a history of palpitations and chest discomfort but has been doing fairly well lately. For about 3-4 days prior to the admission, she stated that she was not doing well and on the day of admission, she woke up at 5 o'clock with lightheadedness, discomfort across her chest with some radiation and a weak sensation in the left upper extremity. She also was sweaty. She has also noted some pedal edema bilaterally. Because she was not getting better, she decided to come to the emergency room for further evaluation. Upon arrival at the emergency room, her vital signs revealed a blood pressure of 120/55 with a pulse of 59, respirations 26, temperature 96.5 degree Fahrenheit and her oxygen saturation was 100% on room air. Her weight is 79.8 kg, and she is 5' 2". She was admitted for further management and monitoring, on telemetry. last night, she was found to be markedly bradycardiac and according to the nursing staff, her heart rate was in the upper 30s but she was sleeping. In view of her symptoms, cardiology consult was called. When I saw her Mrs. Deyanira Whiteside for her underlying cardiac condition, she was in supine in bed, in no acute distress at rest, and her was bed side. She denies any complaint of chest pain. She is asymptomatic but feels some fluttering in the chest yesterday in the emergency room and very briefly today here on the floor. She has not been walking much. She denies any dizziness or lightheadedness. She does have a history of lightheadedness when standing from sitting or supine position. She has no syncope or near syncope. She denies any orthopnea or paroxysmal nocturnal dyspnea (PND). She has no focal manifestation. She denies any cough, hemoptysis or fever. She has no dysuria, polyuria, or hematuria. PAST MEDICAL HISTORY: She has past medical history positive for anxiety/depression and post traumatic stress disorder from childhood, agoraphobia with panic disorder, fibromyalgia, allergic rhinitis, morbid obesity for which she has had bariatric surgery, diabetes mellitus which has resolved after bariatric surgery, arthritis with degenerative joint disease and degenerative disc disease and asthma. There is no history of hypertension, hyperlipidemia, coronary artery disease, myocardial infarction (GA), congestive heart failure, significant valvular heart disease, atrial fibrillation, cerebrovascular accident (CVA), cardiomyopathy, sudden cardiac . She denies thyroid disorders, lung disease, kidney disease. She does have a history of obstructive sleep apnea and has been on continuous positive airway pressure (CPAP). PAST SURGICAL HISTORY: Is positive for and tubal ligation in 1990, ganglion cyst removed from the right wrist in 1994, laparoscopic cholecystectomy 1996 and about two years ago, she had bariatric surgery. FAMILY HISTORY: Is positive for heart disease, her mother. SOCIAL HISTORY: Patient lives with her . She has been on disability. She denies active smoking or ETOH abuse. She stopped smoking more than 20 years ago. ALLERGIES: She has allergies to ULTRACET, altered mental status. She has pets, dogs and cats at home. ADVANCED DIRECTIVES: Patient is a FULL CODE. PHYSICAL EXAMINATION: Patient is alert and awake. She is not in any acute distress at rest. Her last vital signs today reveal a blood pressure of 110/70 with a pulse of 67, respirations 17 and maximum temperature is 97.7 degree Fahrenheit with oxygen saturation is 98% on room air. HEAD: Examination of the head is normocephalic, atraumatic. NECK: Supple, no jugular venous distention. LUNGS: The lungs are clear bilaterally without any wheezing or crackles. HEART: Reveals normal S1 and S2 without gallops. The PMI is not displaced. There is no rub. I could not appreciate any murmurs. ABDOMEN: Soft, non-tender. Bowel sounds active. EXTREMITIES: Revealed no pitting edema. PERIPHERAL PULSES: Dorsalis pedis are +2 and equal. NEUROLOGIC: Examination is negative for focal deficit. NEUROLOGIC: Examination is negative for focal deficit. LABORATORY DATA: CBC done today revealed a WBC of 4.8, hemoglobin 13.1, hematocrit 37.9 and platelet is 203,000. On admission CBC revealed WBC of 5.5, hemoglobin 13.2, hematocrit 38.1 and platelet 202,000. Serum troponin is less than 0.02. BMP done today revealed a sodium of 144, potassium 4.1, chloride 109, CO2 27, BUN 15, creatinine 0.74, glomerular filtration rate (GFR) more than 60. Fasting glucose 90, calcium 8.5. Serum TSH is 1.78, relatively normal. BNP on admission revealed a sodium of 142, potassium 3.9, chloride 107, CO2 28, BUN 15, creatinine 0.75, glomerular filtration rate (GFR) more than 60, fasting glucose 91 and calcium 8.6. Serum D-dimer was 270 ng/mL normal. Lung disease was drawn and results are pending. IMAGING: Chest x-ray was reviewed and revealed no acute disease process. No cardiomegaly. Electrocardiogram on admission 10/13/2016 at 9:43:31 revealed sinus bradycardia at 47 beats per minute and sinus arhythmia. Otherwise unremarkable. Electrocardiogram done on 10/13/2016 at 14:25:00 did not reveal any significant changes. There is some repolarization abnormality. Heart rate was 54 beats per minute. Electrocardiogram done today 10/14/2016 reveals sinus bradycardia at 43 beats per minute. Otherwise unremarkable. MEDICATIONS: - gabapentin 300 mg by mouth nightly - Singulair 10 mg by mouth nightly - Trazodone 100 mg nightly - ondansetron 4 mg IV every 6 hours as needed nausea or vomiting - Tylenol 650 mg every 4 hours as needed for mild pain or fever IMPRESSION: 1. Unexplained chest pain. 2. Sinus bradycardia. 3. Obesity. History of bariatric surgery. 4. History of diabetes mellitus, resolved after bariatric surgery. 5. History of anxiety/depression and panic attack. 6. Arthritis with degenerative disc disease. 7. History of asthma. The etiology of Mrs. Deyanira Whiteside's bradycardia is not quite clear. She is not on any medications that is well known to cause sinus bradycardia. Her TSH is normal. Lyme titer result is pending. Maybe she has some minimal sinus node dysfunction, and I would continue for now with telemetry. Her heart goes slower at night while sleeping but this is a normal reaction. There is no indication at this time for permanent pacemaker and upon discharge, she will have an exercise treadmill test to assess her heart rate response with exercise, then further recommendation will be given. Regarding her low blood pressure and not associated to lightheadedness, I would recommend to decrease the trazodone and use a different antidepressant medication. This can cause low blood pressure. She would benefit from compression stockings upon discharge and in the hospital if available. If she does not respond, we will consider medications. It was pleasure to participate in the care of Mrs. Deyanira Whiteside for her underlying cardiac condition. I will continue to monitor along with you while in the hospital. At this present time, she appears to be stable. Case was discussed earlier today with her admitting provider. CAMILO
[2016-10-15] MEDS ORDERED: FUROSEMIDE 20 MG/2 ML VIAL (J1940) IV ONE (23:00)
[2016-10-16] VITALS: BP 96/59
[2016-10-16 04:00] VITALS: BP 98/53
[2016-10-16] MEDS: HEPARIN SOD (PORCINE) 5000 UNITS/ML VIAL SQ SCH (05:51)
[2016-10-16] MEDS: SLF 3 ML SYR IV SCH (05:51)
[2016-10-16 06:44] LABS: BASO % 0.5 % (0.0-1.0); EOS # 0.1 K/mm3 (0.0-0.50); EOS % 1.5 % (0.0-3.0); LARGE UNSTAINED CELL # 0.1 K/mm3 (0.0-0.4); LARGE UNSTAINED CELL % 2.3 % (0.0-4.0); LYMPH # 1.8 K/mm3 (1.5-4.5); LYMPH % 34.5 % (24.0-44.0); MEAN CORPUSCULAR HEMOGLOBIN 30.8 pg (27.0-33.0); MEAN CORPUSCULAR HGB CONC 34.7 g/dl (32.0-36.5); MEAN CORPUSCULAR VOLUME 88.8 fl (80.0-96.0); MONO # 0.3 K/mm3 (0.0-0.8); MONO % 6.2 % (0.0-5.0); NEUTROPHILS # 2.7 K/mm3 (1.8-7.7); NEUTROPHILS % 55.1 % (36.0-66.0); PLATELET COUNT, AUTOMATED 207 k/mm3 (150-450); RED CELL DISTRIBUTION WIDTH 13.4 % (11.5-14.5)
[2016-10-16 06:56] LABS: ALBUMIN 3.5 GM/DL (3.2-5.2); ALBUMIN/GLOBULIN RATIO 1.06 (1.00-1.93); ALKALINE PHOSPHATASE 54 U/L (45-117); ALT/SGPT 17 U/L (12-78); ANION GAP 7 MEQ/L (8-16); AST/SGOT 12 U/L (15-37); BILIRUBIN,TOTAL 0.4 MG/DL (0.2-1.0); BLOOD UREA NITROGEN 17 MG/DL (7-18); CALCIUM LEVEL 8.6 MG/DL (8.5-10.1); CARBON DIOXIDE LEVEL 29 MEQ/L (21-32); CHLORIDE LEVEL 108 MEQ/L (98-107); CREATININE FOR GFR 0.89 MG/DL (0.55-1.02); GLOMERULAR FILTRATION RATE > 60.0 (>58); GLUCOSE, FASTING 104 MG/DL (70-105); POTASSIUM SERUM 4.2 MEQ/L (3.5-5.1); SODIUM LEVEL 144 MEQ/L (136-145); TOTAL PROTEIN 6.8 GM/DL (6.4-8.2)
[2016-10-16 08:00] VITALS: BP 102/67
--- NOTE | 2016-10-16 09:22 | DSES ---
DATE OF ADMISSION: 10/13/2016 DATE OF DISCHARGE: 10/16/16 PRIMARY CARE PROVIDER: Estephania Bhat ATTENDING PHYSICIAN: Dr. Altaf Harrison HISTORY: This is a 51-year-old female patient who follows with [facility]Note 3] as an outpatient, who presented to [facility] with chest pain, left arm tingling, and a slow heart rate. She noted that she had been feeling unwell for approximately 3-4 days. On the morning of presentation, she woke feeling a prickly sensation in her left chest that radiated to her shoulders and down her arms. She also felt nauseated. Did not vomit. Reported increased swelling in her ankles to her midcalf. She was also feeling lightheaded when ambulating. It resulted in her presenting to the emergency room, where she was noted to be bradycardic throughout the day. Cardiac workup, including enzymes, had been negative. She was admitted to the progressive care unit with consultation to [facility][Note 3] for further management and monitoring. She did have normal thyroid-stimulating hormone (TSH). Her Lyme titer is pending. She has been pretty consistently bradycardic during her hospitalization with her heart rate in the 40s and 50s. Dr. Zendejas has seen the patient and has recommended further outpatient testing, including stress testing. Will discontinue her trazodone and see if this helps with her heart rate, as well. The patient feels comfortable returning home. I spoke with Dr. Zendejas, who also agreed with her discharge. Will need to followup on her Lyme titer as an outpatient. Her discharge diagnoses include: 1. Sinus bradycardia. 2. History of gastric bypass. 3. Chest pain. DISCHARGE MEDICATIONS: Include: - calcium with D by mouth three times a day - gabapentin 300 mg before bed - Singulair 10 mg by mouth daily - multivitamin one tablet daily - vitamin B12/folic acid 500/400 mcg by mouth daily The discharge plan will be to followup with Dr. Zendejas, per his request. Followup with Estephania Bhat in 1 week. Activity should be as tolerated. Diet should be [id number]. Attending note: Pt was discharged prior to being seen by me. However, I agree with the discharge plan of care as documented by Felicia Lorenzo. MD CAMILO Valente
[2016-10-16 14:14] LABS: Lyme Disease IgG/IgM Antibodie <0.91 ISR (0.00-0.90); Lyme Disease IgM Ab Quantitati <0.80 index (0.00-0.79)
== END 2016-10-16 10:55 | disposition home or self-care (01) ==
LOC: M ED 09:33 → INTOOBSV 19:40 → M ED INP 19:40 → M ALC 21:03
PROVIDERS: ADMIT General Practice; ATTEND Family Medicine
DX: R07.9 Chest pain, unspecified (principal); R00.1 Bradycardia, unspecified; R60.0 Localized edema; F40.01 Agoraphobia with panic disorder; F32.9 Major depressive disorder, single episode, unspecified; M79.7 Fibromyalgia; F43.10 Post-traumatic stress disorder, unspecified; J45.30 Mild persistent asthma, uncomplicated; M19.90 Unspecified osteoarthritis, unspecified site; M51.36 Other intervertebral disc degeneration, lumbar region; G47.33 Obstructive sleep apnea (adult) (pediatric); Z98.84 Bariatric surgery status; Z87.891 Personal history of nicotine dependence; Z88.5 Allergy status to narcotic agent; Z79.899 Other long term (current) drug therapy
CPT/HCPCS: 36415; 71010; 80048; 80053; 82550; 82553; 84443; 85025; 85379; 86617; 93005; 93041; 96360; 96361; 96372; 96374; 99285; J1940

== ENCOUNTER → 2017-07-14 | Outpatient (REF) | payer OTHER ==
[~2017-07-14] MED LIST changes: +CALC1TAB21 PO; +GABA-282 PO; +TRAZ-136 PO; +VITACHTA PO; +VITATAB64 PO
[2017-07-14 12:05] LABS: MEAN CORPUSCULAR HEMOGLOBIN 30.4 pg (27.0-33.0); MEAN CORPUSCULAR HGB CONC 33.5 g/dl (32.0-36.5); MEAN CORPUSCULAR VOLUME 90.7 fl (80.0-96.0); PLATELET COUNT, AUTOMATED 231 10^3/uL (150-450); RED CELL DISTRIBUTION WIDTH 13.1 % (11.5-14.5); WHITE BLOOD COUNT 6.7 10^3/uL (4.0-10.0)
[2017-07-14 12:25] LABS: FOLATE 16.9 NG/ML; VITAMIN B12 LEVEL 713 PG/ML
[2017-07-14 12:57] LABS: ALBUMIN 3.3 GM/DL (3.2-5.2); ALBUMIN/GLOBULIN RATIO 1.06 (1.00-1.93); ALKALINE PHOSPHATASE 52 U/L (45-117); ALT/SGPT 17 U/L (12-78); ANION GAP 6 MEQ/L (8-16); AST/SGOT 8 U/L (7-37); BILIRUBIN,TOTAL 0.3 MG/DL (0.2-1.0); BLOOD UREA NITROGEN 12 MG/DL (7-18); CALCIUM LEVEL 8.7 MG/DL (8.5-10.1); CARBON DIOXIDE LEVEL 28 MEQ/L (21-32); CHLORIDE LEVEL 108 MEQ/L (98-107); CREATININE FOR GFR 0.67 MG/DL (0.55-1.02); FREE T4 0.98 NG/DL (0.76-1.46); GLOMERULAR FILTRATION RATE > 60.0 (>58); GLUCOSE, FASTING 89 MG/DL (70-105); POTASSIUM SERUM 4.6 MEQ/L (3.5-5.1); SODIUM LEVEL 142 MEQ/L (136-145); TOTAL PROTEIN 6.4 GM/DL (6.4-8.2)
== END ==
LOC: M SFHCPLAZ 09:51
PROVIDERS: ATTEND Nurse Practitioner Family
DX: E66.9 Obesity, unspecified (principal); M79.7 Fibromyalgia; Z98.84 Bariatric surgery status; J45.30 Mild persistent asthma, uncomplicated

== ENCOUNTER → 2017-08-03 | Outpatient (REF) | payer OTHER | LOC: M SFHCWAGY 12:44 | PROVIDERS: ATTEND Nurse Practitioner Women's Health | DX: Z12.4 Encounter for screening for malignant neoplasm of cervix (principal) ==

== ENCOUNTER → 2017-08-03 | Outpatient (CLI) | payer OTHER ==
--- NOTE | 2017-08-03 15:02 | REP ---
BILATERAL MAMMOGRAM: Family history mother and paternal aunt with breast cancer. Bilateral mammography performed in the MLO and CC projections and compared to a prior studies most recent of which is 06/05/2016. There is mild scattered fibroglandular tissue bilaterally. I suspect a nodule at 6 o'clock in the left breast measuring about 1 cm in diameter. Recommend spot compression views and ultrasound to further evaluate. Also in the upper aspect of the left breast at about 12 o'clock there appear to be tiny calcifications what should be further evaluated with magnification views. No mass or clustered microcalcifications are seen in the right breast. IMPRESSION: BI-RADS/ACR category 0 mammogram, incomplete. Additional imaging and/or prior mammograms for comparison. ACR 0 incomplete. Suspect rounded 1 cm nodule 6 o'clock in the left breast. Recommend spot compression views and ultrasound to further evaluate. Also I suspect clustered microcalcifications at 12 o'clock in the left breast. Recommend magnification views to further evaluate. This mammogram was interpreted with the aid of an FDA-approved computer-aided detection system. The patient states she/he had a clinical breast exam in 07/2017. The patient letter being requested is M0. Using the Tyrer-Cuzick model for breast cancer risk patient's lifetime risk for breast cancer is 21.3% which is elevated.
== END ==
LOC: M WHC 09:08
PROVIDERS: ATTEND Nurse Practitioner Women's Health
DX: Z12.31 Encounter for screening mammogram for malignant neoplasm of breast (principal)

== ENCOUNTER → 2017-08-09 | Outpatient (CLI) | payer OTHER ==
--- NOTE | 2017-08-09 10:34 | REP ---
DIAGNOSTIC MAMMOGRAM LEFT BREAST WITH LEFT BREAST ULTRASOUND: Multiple spot compression magnification views of the left breast are performed and correlated with the recent mammogram of 08/03/2017. There is persistence of a nodule in the 6-o'clock region of the left breast. The majority of the margins appear smooth and well defined. This measures about 1 cm in diameter and is approximately 4 cm from the nipple. There are adjacent clustered microcalcifications which appear pleomorphic and biopsy of these calcifications is recommended. Real-time sonographic evaluation of the left breast performed in the region of 6-o'clock. There is an oval cyst at this location corresponding to the mammographic abnormality. It measures 1.1 x 0.5 x 1.0 cm. There are internal low level echoes compatible with a mildly complex cyst. This appears benign. IMPRESSION: ACR 4 suspicious. Clustered microcalcifications in the upper left breast for which stereotactic biopsy is recommended. BI-RADS/ACR category 4 mammogram. Suspicious abnormality - biopsy should be considered. Usually requires biopsy. There is a nodule confirmed at 6-o'clock which by ultrasound appears to represent a mildly complex cyst, which appears benign. This mildly complex cyst does not appear suspicious. This mammogram was interpreted with the aid of an FDA-approved computer-aided detection system. A. Negative x-ray reports should not delay biopsy if a dominant or clinically suspicious mass is present. B. Four to eight percent of cancers are not identified by x-ray. C. Adenosis and dense breasts may obscure an underlying neoplasm. The patient letter being requested is M4. Signed by Uriel Moffett MD 08/09/2017 05:55 P
== END ==
LOC: M RAD 08:49
PROVIDERS: ATTEND Nurse Practitioner Women's Health
DX: R92.0 Mammographic microcalcification found on diagnostic imaging of breast (principal)
CPT/HCPCS: 76642; G0206

== ENCOUNTER → 2017-09-06 | Outpatient (CLI) | payer OTHER ==
[~2017-09-06] MED LIST changes: -/ACETCOD2T PO; -CALC1TAB21 PO; -FURO40TA2 PO; -GABA-282 PO; -GABA100C PO; +LIDOCAINE 1% MDV 20ML VIAL As Ordered; -MONT10TA2 PO; -NORCOBULK PO; -NUCY50TA PO; -SYMB80AE IN; -TRAZ-136 PO; -VENL25TA2 PO; -VENTAER IN; -VILAZODONE PO; -VITA500047 PO; -VITACHTA PO; -VITATAB64 PO; -ZOLP12.515 PO
== END ==
LOC: M RADPRO 10:03
DX: N60.11 Diffuse cystic mastopathy of right breast (principal); R92.0 Mammographic microcalcification found on diagnostic imaging of breast; J45.30 Mild persistent asthma, uncomplicated; J30.89 Other allergic rhinitis; E55.9 Vitamin D deficiency, unspecified; M54.5 Low back pain; E66.9 Obesity, unspecified; Z79.899 Other long term (current) drug therapy; Z88.8 Allergy status to other drugs, medicaments and biological substances
CPT/HCPCS: 19083

== ENCOUNTER → 2017-09-23 | Outpatient (REF) | payer OTHER, MEDICAID ==
[2017-09-23 13:33] LABS: INFLUENZA A AMPLIFICATION NEGATIVE (NEGATIVE); INFLUENZA B AMPLIFICATION NEGATIVE (NEGATIVE); RSV AMPLIFICATION NEGATIVE (NEGATIVE)
== END ==
LOC: M LAB REF 12:12
DX: J11.1 Influenza due to unidentified influenza virus with other respiratory manifestations (principal)

== ENCOUNTER → 2018-02-17 | Outpatient (REF) | payer OTHER ==
[2018-02-17 11:56] LABS: HEMOGLOBIN 13.3 g/dl (12.0-15.5); MEAN CORPUSCULAR HEMOGLOBIN 29.7 pg (27.0-33.0); MEAN CORPUSCULAR HGB CONC 33.3 g/dl (32.0-36.5); MEAN CORPUSCULAR VOLUME 89.3 fl (80.0-96.0); PLATELET COUNT, AUTOMATED 251 10^3/uL (150-450); RED BLOOD COUNT 4.48 10^6/uL (4.00-5.40); RED CELL DISTRIBUTION WIDTH 13.5 % (11.5-14.5); WHITE BLOOD COUNT 5.9 10^3/uL (4.0-10.0)
[2018-02-17 12:39] LABS: TOTAL 25(OH) VITAMIN D 36.8 NG/ML (30.0-100.0)
[2018-02-17 12:40] LABS: FOLATE 13.2 NG/ML; VITAMIN B12 LEVEL 1020 PG/ML
[2018-02-17 12:45] LABS: ALBUMIN 3.5 GM/DL (3.2-5.2); ALBUMIN/GLOBULIN RATIO 1.06 (1.00-1.93); ALKALINE PHOSPHATASE 60 U/L (45-117); ALT/SGPT 22 U/L (12-78); ANION GAP 9 MEQ/L (8-16); AST/SGOT 15 U/L (7-37); BILIRUBIN,TOTAL 0.5 MG/DL (0.2-1.0); BLOOD UREA NITROGEN 16 MG/DL (7-18); CALCIUM LEVEL 8.2 MG/DL (8.5-10.1); CARBON DIOXIDE LEVEL 27 MEQ/L (21-32); CHLORIDE LEVEL 108 MEQ/L (98-107); CREATININE FOR GFR 0.71 MG/DL (0.55-1.30); FERRITIN 21 NG/ML (8-252); GLOMERULAR FILTRATION RATE > 60.0 (>51); GLUCOSE, FASTING 81 MG/DL (70-100); POTASSIUM SERUM 4.5 MEQ/L (3.5-5.1); SODIUM LEVEL 144 MEQ/L (136-145); TOTAL PROTEIN 6.8 GM/DL (6.4-8.2)
== END ==
LOC: M SFHCPLAZ 07:48
DX: Z98.84 Bariatric surgery status (principal); E55.9 Vitamin D deficiency, unspecified
CPT/HCPCS: 82746

== ENCOUNTER → 2018-07-21 | Outpatient (REF) | payer OTHER ==
[2018-07-21 18:51] LABS: ALBUMIN 3.5 GM/DL (3.2-5.2); ALBUMIN/GLOBULIN RATIO 0.95 (1.00-1.93); ALKALINE PHOSPHATASE 79 U/L (45-117); ALT/SGPT 20 U/L (12-78); ANION GAP 9 MEQ/L (8-16); AST/SGOT 12 U/L (7-37); BILIRUBIN,TOTAL 0.4 MG/DL (0.2-1.0); BLOOD UREA NITROGEN 13 MG/DL (7-18); CALCIUM LEVEL 8.3 MG/DL (8.5-10.1); CARBON DIOXIDE LEVEL 28 MEQ/L (21-32); CHLORIDE LEVEL 105 MEQ/L (98-107); CREATININE FOR GFR 0.73 MG/DL (0.55-1.30); FREE T4 1.02 NG/DL (0.76-1.46); GLOMERULAR FILTRATION RATE > 60.0 (>51); GLUCOSE, FASTING 74 MG/DL (70-100); POTASSIUM SERUM 4.2 MEQ/L (3.5-5.1); SODIUM LEVEL 142 MEQ/L (136-145); TOTAL 25(OH) VITAMIN D 41.6 NG/ML (30.0-100.0); TOTAL PROTEIN 7.2 GM/DL (6.4-8.2)
== END ==
LOC: M SFHCPLAZ 16:14
DX: M79.7 Fibromyalgia (principal); E55.9 Vitamin D deficiency, unspecified; F41.1 Generalized anxiety disorder
CPT/HCPCS: 84443

== ENCOUNTER → 2018-08-04 | Outpatient (CLI) | payer OTHER | LOC: M WHC 09:00 | DX: Z12.31 Encounter for screening mammogram for malignant neoplasm of breast (principal); Z80.3 Family history of malignant neoplasm of breast; Z86.018 Personal history of other benign neoplasm; Z92.0 Personal history of contraception | CPT/HCPCS: 77067 ==

== ENCOUNTER → 2020-02-06 | Outpatient (REF) | payer OTHER ==
[~2020-02-06] MED LIST changes: +ACET1TAB15 PO; +CALC1TAB21 PO; +FURO40TA2 PO; +GABA-282 PO; +GABA100C PO; -LIDOCAINE 1% MDV 20ML VIAL As Ordered; +MONT10TA10 PO; +MONT10TA2 PO; +NORCOBULK PO; +NUCY50TA PO; +SYMB80AE IN; +TRAZ-257 PO; +VENL25TA2 PO; +VENTAER IN; +VILAZODONE PO; +VITA500047 PO; +VITACHTA PO; +VITATAB64 PO; +ZOLP12.515 PO
== END ==
LOC: M SFHCWAGY 10:50
PROVIDERS: ATTEND Nurse Practitioner Women's Health
DX: Z12.4 Encounter for screening for malignant neoplasm of cervix (principal); Z01.419 Encounter for gynecological examination (general) (routine) without abnormal findings

== ENCOUNTER → 2020-02-06 | Outpatient (CLI) | payer OTHER ==
[~2020-02-06] MED LIST changes: -GABA-282 PO; +GABA-843 PO; -MONT10TA10 PO; +MONT10TA4 PO
--- NOTE | 2020-02-06 09:41 | REPMRS ---
Patient History The patient states she had a clinical breast exam in January 2020. Family history of pancreatic cancer in father, prostate cancer in maternal uncle, breast cancer in mother, breast cancer in paternal aunt. Benign radio exam breast specimen of the left breast, September 06, 2017. Benign stereotatic loc for ea lesion of the left breast, September 06, 2017. Taking hormonal contraceptives for 6 months. Digital Woman Screen Mammo: February 06, 2020 - Exam #: [id number] Bilateral CC and MLO view(s) were taken. Technologist: Maura Grossman, Technologist Prior study comparison: August 04, 2018, bilateral digital woman screen mammo performed at [facility]. August 03, 2017, digital woman screen mammo performed at [facility]. June 05, 2016, digital woman screen mammo performed at [facility]. FINDINGS: The breast tissue is almost entirely fat. The Volpara volumetric breast density category is: A. There is a needle biopsy marker clip again noted in the left breast. There has been no change in the appearance of the mammogram from the prior studies. There is no interval development of dominant mass, architectural distortion, or grouped microcalcification typical of malignancy. 3-D tomosynthesis shows no additional findings. Assessment: BI-RADS/ACR category 2 mammogram. Benign Findings. Recommendation Breast MRI of both breasts in 6 months. Routine screening mammogram of both breasts in 1 year (for women over age 40). This patient's Lifetime Breast Cancer RIsk is estimated at 21.2 %. Annual screening Breast MRI scanniing is recommended for patient's whose lifetime risk assessment is over 20%. This mammogram was interpreted with the aid of an FDA-approved computer-aided dectection system. Electronically Signed By: Aakash Haywood MD 02/06/20 [id number]
== END ==
LOC: M WHC 08:21
PROVIDERS: ATTEND Nurse Practitioner Women's Health
DX: Z12.31 Encounter for screening mammogram for malignant neoplasm of breast (principal)

== ENCOUNTER 2020-04-12 15:01 | Emergency (ER) | payer MEDICAID, OTHER ==
[~2020-04-12] VITALS: Ht 157.5 cm; Wt 102.0 kg
[2020-04-12 15:01] VITALS: BP 138/70
[2020-04-12] MEDS ORDERED: GABA-843 PO (15:32)
== END 2020-04-12 15:48 | disposition home or self-care (01) ==
LOC: M ED 15:01
DX: Z76.0 Encounter for issue of repeat prescription (principal); M79.7 Fibromyalgia; J45.909 Unspecified asthma, uncomplicated; F43.10 Post-traumatic stress disorder, unspecified; Z98.84 Bariatric surgery status; Z88.5 Allergy status to narcotic agent; Z79.899 Other long term (current) drug therapy

== ENCOUNTER → 2020-08-22 | Outpatient (CLI) | payer OTHER, MEDICAID ==
[~2020-08-22] MED LIST changes: -MONT10TA4 PO; +MONT5TAB2 PO
[2020-08-22 12:51] LABS: ALBUMIN 3.6 GM/DL (3.2-5.2); ALT/SGPT 21 U/L (12-78); BILIRUBIN,TOTAL 0.4 MG/DL (0.2-1.0); BLOOD UREA NITROGEN 17 MG/DL (7-18); CALCIUM LEVEL 8.2 MG/DL (8.5-10.1); CARBON DIOXIDE LEVEL 29 MEQ/L (21-32); CHLORIDE LEVEL 108 MEQ/L (98-107); CHOLESTEROL LEVEL 155 MG/DL (<200); CHOLESTEROL RISK RATIO 3.522 (<5); FREE T4 0.97 NG/DL (0.76-1.46); GLOMERULAR FILTRATION RATE > 60.0 (>51); GLUCOSE, FASTING 125 MG/DL (70-100); HDL CHOLESTEROL 44 MG/DL (>40); LDL CHOLESTEROL 91 MG/DL (<100); NON-HDL-C 111 MG/DL; POTASSIUM SERUM 4.5 MEQ/L (3.5-5.1); SODIUM LEVEL 140 MEQ/L (136-145); TOTAL PROTEIN 6.4 GM/DL (6.4-8.2); TRIGLYCERIDES LEVEL 100 MG/DL (<150)
== END ==
LOC: M WUC 09:36
PROVIDERS: ATTEND Nurse Practitioner Family
DX: Z00.00 Encounter for general adult medical examination without abnormal findings (principal)

== ENCOUNTER → 2020-10-08 | Outpatient (CLI) | payer OTHER ==
[~2020-10-08] MED LIST changes: +GABA-282 PO; -GABA-843 PO; +MONT10TA10 PO; -MONT5TAB2 PO; +PROHANCE 279.3MG/ML 15ML VIAL As Ordered ONE; +PROHANCE 279.3MG/ML 5ML VIAL As Ordered ONE
--- NOTE | 2020-10-08 18:47 | REP ---
INDICATION: FAM HX OF BREAST CA, HIGH RISK. COMPARISON: Comparison mammography 06 February 2020. TECHNIQUE: Three Rema MRI imaging was performed with a dedicated breast coil. Axial, coronal, and sagittal T1 and T2 weighted scans were obtained with and without fat saturation in the usual fashion. The study includes dynamically acquired post gadolinium-enhanced imaging with image subtraction. Maximum intensity projection and multi planar reformation imaging is included as well. This study is interpreted with the aid of Valchemy, an FDA approved computer aided detection (CAD) software program, on a dedicated breast MRI workstation. The gadolinium enhancement dose is 20 mL of intravenous ProHance. FINDINGS: There is a mild amount of fibroglandular tissue bilaterally corresponding with the mammographic pattern. There is minimal background parenchymal enhancement. There is no evidence of axillary lymphadenopathy or significant breast cystic change. High-resolution pre and post-contrast T1 and T2 weighted scans show no suspicious morphologic abnormality in either breast. Dynamically acquired sequential postcontrast images show no suspicious area of enhancement and washout kinetics in either breast to suggest malignancy. Subtraction images show no additional abnormality IMPRESSION: BI-RADS category 1 negative bilateral breast MRI findings. Patients whose lifetime breast cancer risk assessment is greater than 20% merit screening breast MRI study annually as well as screening mammography. <Electronically signed by Aakash Haywood > 10/08/20 [id number]
== END ==
LOC: M RAD 15:26
PROVIDERS: ATTEND Nurse Practitioner Women's Health
DX: Z12.31 Encounter for screening mammogram for malignant neoplasm of breast (principal); Z80.3 Family history of malignant neoplasm of breast
CPT/HCPCS: A9576; C8908

== ENCOUNTER → 2020-12-05 | Outpatient (CLI) | payer OTHER ==
[~2020-12-05] MED LIST changes: -PROHANCE 279.3MG/ML 15ML VIAL As Ordered ONE; -PROHANCE 279.3MG/ML 5ML VIAL As Ordered ONE
[2020-12-05 20:54] LABS: BASO % 0.3 % (0.0-1.0); EOS # 0.1 10^3/uL (0.0-0.5); EOS % 1.3 % (0.0-3.0); HEMOGLOBIN 13.2 g/dl (12.0-15.5); LYMPH # 2.7 10^3/uL (1.5-5.0); LYMPH % 30.9 % (24.0-44.0); MEAN CORPUSCULAR HEMOGLOBIN 29.3 pg (27.0-33.0); MEAN CORPUSCULAR HGB CONC 31.4 g/dl (32.0-36.5); MEAN CORPUSCULAR VOLUME 93.1 fl (80.0-96.0); MONO # 0.7 10^3/uL (0.0-0.8); MONO % 7.7 % (2.0-8.0); NEUTROPHILS # 5.2 10^3/uL (1.5-8.5); NEUTROPHILS % 59.6 % (36.0-66.0); PLATELET COUNT, AUTOMATED 246 10^3/uL (150-450); RED BLOOD COUNT 4.51 10^6/uL (4.00-5.40); WHITE BLOOD COUNT 8.7 10^3/uL (4.0-10.0)
[2020-12-05 21:04] LABS: APPEARANCE, URINE CLEAR (CLEAR); BACTERIA, URINE AUTO NEGATIVE (NEGATIVE); BILIRUBIN, URINE AUTO NEGATIVE (NEGATIVE); BLOOD, URINE BLOOD NEGATIVE (NEGATIVE); COLOR, URINE YELLOW (YELLOW); GLUCOSE, URINE (UA) AUTO NEGATIVE (NEGATIVE); KETONE, URINE AUTO NEGATIVE (NEGATIVE); LEUKOCYTE ESTERASE, URINE AUTO NEGATIVE (NEGATIVE); MUCUS, URINE SMALL (NEGATIVE); NITRITE, URINE AUTO NEGATIVE (NEGATIVE); PROTEIN, URINE AUTO NEGATIVE (NEGATIVE); RBC, URINE AUTO 0 /HPF (0-3); SPECIFIC GRAVITY URINE AUTO 1.027 (1.002-1.035); SQUAMOUS EPITHELIAL CELL UR AU 1 /HPF (0-6); UROBILINOGEN, URINE AUTO 0.2 mg/dL (0.0-2.0); WBC, URINE AUTO 2 /HPF (0-3)
[2020-12-05 21:13] LABS: ERYTHROCYTE SEDIMENTATION RATE 19 mm/hr (0-30)
[2020-12-05 21:21] LABS: ALBUMIN 3.8 GM/DL (3.2-5.2); ALT/SGPT 22 U/L (12-78); BILIRUBIN,TOTAL 0.4 MG/DL (0.2-1.0); BLOOD UREA NITROGEN 17 MG/DL (7-18); C REACTIVE PROTEIN QUANTITATIV 0.72 MG/DL (0.00-0.30); CALCIUM LEVEL 8.7 MG/DL (8.5-10.1); CARBON DIOXIDE LEVEL 30 MEQ/L (21-32); CHLORIDE LEVEL 107 MEQ/L (98-107); CREATININE FOR GFR 0.63 MG/DL (0.55-1.30); FERRITIN 76 NG/ML (8-252); FOLATE 8.8 NG/ML; FREE T4 0.97 NG/DL (0.76-1.46); GLOMERULAR FILTRATION RATE > 60.0 (>51); GLUCOSE, FASTING 95 MG/DL (70-100); IRON (FE) 55 UG/DL (50-170); MAGNESIUM LEVEL 2.4 MG/DL (1.8-2.4); PERCENT SATURATION 17.4 % (13.2-45.0); POTASSIUM SERUM 3.8 MEQ/L (3.5-5.1); RHEUMATOID FACTOR QUANT < 10.0 IU/ML (<15.0); SODIUM LEVEL 141 MEQ/L (136-145); TOTAL IRON BINDING CAPACITY 317 UG/DL (250-450); TOTAL PROTEIN 6.7 GM/DL (6.4-8.2)
[2020-12-06 10:19] LABS: TOTAL 25(OH) VITAMIN D 20.3 NG/ML (30.0-100.0)
[2020-12-06 10:54] LABS: VITAMIN B12 LEVEL 525 PG/ML
== END ==
LOC: M WUC 15:42
PROVIDERS: ATTEND Nurse Practitioner Family
DX: R53.83 Other fatigue (principal); R20.2 Paresthesia of skin; M79.7 Fibromyalgia

== ENCOUNTER → 2021-03-28 | Outpatient (REF) | payer OTHER ==
[2021-03-31 23:07] LABS: Lyme Disease IgG Ab 18 kDa Ban Absent (.); Lyme Disease IgG Ab 23 kDa Ban Absent (.); Lyme Disease IgG Ab 28 kDa Ban Absent (.); Lyme Disease IgG Ab 30 kDa Ban Absent (.); Lyme Disease IgG Ab 39 kDa Ban Absent (.); Lyme Disease IgG Ab 41 kDa Ban Absent (.); Lyme Disease IgG Ab 45 kDa Ban Absent (.); Lyme Disease IgG Ab 58 kDa Ban Absent (.); Lyme Disease IgG Ab 66 kDa Ban Absent (.); Lyme Disease IgG Ab 93 kDa Ban Present (.); Lyme Disease IgG West Blot Int Negative (.); Lyme Disease IgG/IgM Antibodie <0.91 ISR (0.00-0.90); Lyme Disease IgM Ab 23 kDa Ban Present (.); Lyme Disease IgM Ab 39 kDa Ban Absent (.); Lyme Disease IgM Ab 41 kDa Ban Absent (.); Lyme Disease IgM Ab Quantitati 5.78 index (0.00-0.79); Lyme Disease IgM West Blot Int Negative (.)
== END ==
LOC: M WUC 11:13
PROVIDERS: ATTEND Nurse Practitioner Family
DX: S80.862A Insect bite (nonvenomous), left lower leg, initial encounter (principal); W57.XXXA Bitten or stung by nonvenomous insect and other nonvenomous arthropods, initial encounter; Y92.9 Unspecified place or not applicable

== ENCOUNTER → 2021-04-15 | Outpatient (CLI) | payer OTHER ==
--- NOTE | 2021-04-15 16:00 | REPMRS ---
Patient History The patient states she had a clinical breast exam on 04-15-2021. Family history of pancreatic cancer in father, prostate cancer in maternal uncle, breast cancer in mother, breast cancer in paternal aunt. Benign radio exam breast specimen of the left breast, September 06, 2017. Benign stereotatic loc for ea lesion of the left breast, September 06, 2017. Taking hormonal contraceptives for 6 months. Patient states no breast complaints today. Patient has signed MRS History Sheet. Digital Woman Screen Mammo: April 15, 2021 - Exam #: [id number] Bilateral CC and MLO view(s) were taken. Technologist: Beverley Lugo [employer] Prior study comparison: February 06, 2020, bilateral digital woman screen mammo performed at [facility]. August 04, 2018, bilateral digital woman screen mammo performed at [facility]. August 03, 2017, digital woman screen mammo performed at [facility]. FINDINGS: The breast tissue is almost entirely fat. The Volpara volumetric breast density category is: A. There is a needle biopsy marker clip noted in the left breast. There has been no change in the appearance of the mammogram from the prior studies. There is no interval development of dominant mass, architectural distortion, or grouped microcalcification typical of malignancy. 3-D tomosynthesis shows no additional findings. Assessment: BI-RADS/ACR category 2 mammogram. Benign Findings. Recommendation Breast MRI of both breasts in 6 months. Routine screening mammogram of both breasts in 1 year (for women over age 40). This patient's [facility] Lifetime Breast Cancer RIsk is estimated at 21.3 %. Patients whose estimated lifetime breast cancer risk assessment is greater than 20% merit annual screening breast MRI scanning in addition to annual mammography. This mammogram was interpreted with the aid of an FDA-approved computer-aided dectection system. Electronically Signed By: Aakash Haywood MD 04/15/21 1600
== END ==
LOC: M WHC 13:46
PROVIDERS: ATTEND Nurse Practitioner Women's Health
DX: Z12.31 Encounter for screening mammogram for malignant neoplasm of breast (principal)

== ENCOUNTER → 2021-04-15 | Outpatient (REF) | payer OTHER | LOC: M SFHCWAGY 17:11 | PROVIDERS: ATTEND Nurse Practitioner Women's Health | DX: Z12.4 Encounter for screening for malignant neoplasm of cervix (principal); Z01.419 Encounter for gynecological examination (general) (routine) without abnormal findings ==

== ENCOUNTER → 2021-06-04 | Outpatient (REF) | payer OTHER ==
[2021-06-04 22:56] LABS: RSV AMPLIFICATION NEGATIVE (NEGATIVE)
== END ==
LOC: M LAB REF 21:14
PROVIDERS: ATTEND Physician Assistant
DX: R05.9 Cough, unspecified (principal)

== ENCOUNTER → 2021-07-22 | Outpatient (CLI) | payer OTHER ==
[~2021-07-22] MED LIST changes: -MONT10TA10 PO; +MONT10TA97 PO
[2021-07-22 11:43] LABS: BASO % 0.5 % (0.0-1.0); EOS # 0.2 10^3/uL (0.0-0.5); EOS % 2.6 % (0.0-3.0); HEMATOCRIT 41.4 % (36.0-47.0); HEMOGLOBIN 13.3 g/dl (12.0-15.5); LYMPH # 1.9 10^3/uL (1.5-5.0); LYMPH % 23.6 % (24.0-44.0); MEAN CORPUSCULAR HEMOGLOBIN 29.4 pg (27.0-33.0); MEAN CORPUSCULAR HGB CONC 32.1 g/dl (32.0-36.5); MEAN CORPUSCULAR VOLUME 91.6 fl (80.0-96.0); MONO # 0.6 10^3/uL (0.0-0.8); NEUTROPHILS # 5.2 10^3/uL (1.5-8.5); NEUTROPHILS % 65.2 % (36.0-66.0); PLATELET COUNT, AUTOMATED 218 10^3/uL (150-450); RED BLOOD COUNT 4.52 10^6/uL (4.00-5.40)
[2021-07-22 12:11] LABS: ERYTHROCYTE SEDIMENTATION RATE 30 mm/hr (0-30)
[2021-07-22 12:18] LABS: ALBUMIN 3.5 GM/DL (3.2-5.2); ALT/SGPT 22 U/L (12-78); BILIRUBIN,TOTAL 0.4 MG/DL (0.2-1.0); BLOOD UREA NITROGEN 17 MG/DL (7-18); CALCIUM LEVEL 8.8 MG/DL (8.5-10.1); CARBON DIOXIDE LEVEL 30 MEQ/L (21-32); CHLORIDE LEVEL 111 MEQ/L (98-107); CREATININE FOR GFR 0.75 MG/DL (0.55-1.30); GLOMERULAR FILTRATION RATE > 60.0 (>51); GLUCOSE, FASTING 90 MG/DL (70-100); POTASSIUM SERUM 4.7 MEQ/L (3.5-5.1); SODIUM LEVEL 144 MEQ/L (136-145); TOTAL PROTEIN 6.7 GM/DL (6.4-8.2); URIC ACID 3.3 MG/DL (2.6-6.0)
[2021-07-22 12:19] LABS: C REACTIVE PROTEIN QUANTITATIV 1.64 MG/DL (0.00-0.30)
== END ==
LOC: M WUC 09:32
PROVIDERS: ATTEND Nurse Practitioner Family
DX: M79.662 Pain in left lower leg (principal)

== ENCOUNTER → 2021-10-20 | Outpatient (REF) | payer OTHER ==
[2021-10-20 12:48] LABS: APPEARANCE, URINE HAZY (CLEAR); BACTERIA, URINE AUTO NEGATIVE (NEGATIVE); BILIRUBIN, URINE AUTO NEGATIVE (NEGATIVE); BLOOD, URINE BLOOD NEGATIVE (NEGATIVE); COLOR, URINE YELLOW (YELLOW); GLUCOSE, URINE (UA) AUTO NEGATIVE (NEGATIVE); KETONE, URINE AUTO NEGATIVE (NEGATIVE); LEUKOCYTE ESTERASE, URINE AUTO TRACE (NEGATIVE); MUCUS, URINE SMALL (NEGATIVE); NITRITE, URINE AUTO NEGATIVE (NEGATIVE); PROTEIN, URINE AUTO NEGATIVE (NEGATIVE); RBC, URINE AUTO 4 /HPF (0-3); SPECIFIC GRAVITY URINE AUTO 1.025 (1.002-1.035); SQUAMOUS EPITHELIAL CELL UR AU 5 /HPF (0-6); UROBILINOGEN, URINE AUTO 0.2 mg/dL (0.0-2.0); WBC, URINE AUTO 16 /HPF (0-3)
== END ==
LOC: M LAB REF 11:54
PROVIDERS: ATTEND Physician Assistant Medical
DX: R30.0 Dysuria (principal)

== ENCOUNTER → 2021-11-21 | Outpatient (REF) | payer OTHER ==
[2021-11-21 13:07] LABS: APPEARANCE, URINE HAZY (CLEAR); BACTERIA, URINE AUTO NEGATIVE (NEGATIVE); BILIRUBIN, URINE AUTO NEGATIVE (NEGATIVE); BLOOD, URINE BLOOD NEGATIVE (NEGATIVE); COLOR, URINE YELLOW (YELLOW); GLUCOSE, URINE (UA) AUTO NEGATIVE (NEGATIVE); KETONE, URINE AUTO 1+ mg/dL (NEGATIVE); LEUKOCYTE ESTERASE, URINE AUTO 1+ (NEGATIVE); MUCUS, URINE SMALL (NEGATIVE); NITRITE, URINE AUTO NEGATIVE (NEGATIVE); PROTEIN, URINE AUTO 1+ mg/dL (NEGATIVE); RBC, URINE AUTO 15 /HPF (0-3); SPECIFIC GRAVITY URINE AUTO 1.028 (1.002-1.035); SQUAMOUS EPITHELIAL CELL UR AU 0 /HPF (0-6); WBC, URINE AUTO 36 /HPF (0-3)
== END ==
LOC: M LAB REF 12:20
PROVIDERS: ATTEND Physician Assistant Medical
DX: R30.0 Dysuria (principal)

== ENCOUNTER → 2021-11-21 | Outpatient (CLI) | payer OTHER ==
[2021-11-21 16:28] LABS: RHEUMATOID FACTOR QUANT < 10.0 IU/ML (<15.0); URIC ACID 3.1 MG/DL (2.6-6.0)
== END ==
LOC: M WUC 14:46
PROVIDERS: ATTEND Physician Assistant
DX: M17.12 Unilateral primary osteoarthritis, left knee (principal)

== ENCOUNTER → 2021-12-23 | Outpatient (CLI) | payer OTHER ==
[2021-12-23 17:02] LABS: ALBUMIN 3.5 GM/DL (3.2-5.2); ALT/SGPT 21 U/L (12-78); BILIRUBIN,TOTAL 0.3 MG/DL (0.2-1.0); BLOOD UREA NITROGEN 16 MG/DL (7-18); CALCIUM LEVEL 8.9 MG/DL (8.5-10.1); CARBON DIOXIDE LEVEL 28 MEQ/L (21-32); CHLORIDE LEVEL 110 MEQ/L (98-107); CHOLESTEROL LEVEL 143 MG/DL (<200); CHOLESTEROL RISK RATIO 3.108 (<5); CREATININE FOR GFR 0.66 MG/DL (0.55-1.30); GLOMERULAR FILTRATION RATE > 60.0 (>51); GLUCOSE, FASTING 83 MG/DL (70-100); HDL CHOLESTEROL 46 MG/DL (>40); LDL CHOLESTEROL 80 MG/DL (<100); NON-HDL-C 97 MG/DL; POTASSIUM SERUM 3.9 MEQ/L (3.5-5.1); SODIUM LEVEL 144 MEQ/L (136-145); TOTAL PROTEIN 6.7 GM/DL (6.4-8.2); TRIGLYCERIDES LEVEL 87 MG/DL (<150)
== END ==
LOC: M WUC 14:08
PROVIDERS: ATTEND Nurse Practitioner Family
DX: Z00.00 Encounter for general adult medical examination without abnormal findings (principal)

== ENCOUNTER → 2022-03-25 | Outpatient (CLI) | payer OTHER ==
[2022-03-25 12:43] LABS: BASO # 0.1 10^3/uL (0.0-0.2); BASO % 0.8 % (0.0-1.0); EOS # 0.1 10^3/uL (0.0-0.5); EOS % 1.7 % (0.0-3.0); HEMATOCRIT 41.8 % (36.0-47.0); HEMOGLOBIN 13.6 g/dl (12.0-15.5); LYMPH # 2.1 10^3/uL (1.5-5.0); LYMPH % 33.4 % (24.0-44.0); MEAN CORPUSCULAR HEMOGLOBIN 29.3 pg (27.0-33.0); MEAN CORPUSCULAR HGB CONC 32.5 g/dl (32.0-36.5); MEAN CORPUSCULAR VOLUME 90.1 fl (80.0-96.0); MONO # 0.6 10^3/uL (0.0-0.8); MONO % 9.1 % (2.0-8.0); NEUTROPHILS # 3.5 10^3/uL (1.5-8.5); NEUTROPHILS % 54.8 % (36.0-66.0); PLATELET COUNT, AUTOMATED 226 10^3/uL (150-450); RED BLOOD COUNT 4.64 10^6/uL (4.00-5.40); WHITE BLOOD COUNT 6.4 10^3/uL (4.0-10.0)
[2022-03-25 13:17] LABS: ERYTHROCYTE SEDIMENTATION RATE 18 mm/hr (0-30)
[2022-03-25 15:25] LABS: ALBUMIN 3.3 GM/DL (3.2-5.2); ALT/SGPT 21 U/L (12-78); BILIRUBIN,TOTAL 0.2 MG/DL (0.2-1.0); BLOOD UREA NITROGEN 15 MG/DL (7-18); C REACTIVE PROTEIN QUANTITATIV 0.62 MG/DL (0.00-0.30); CALCIUM LEVEL 8.2 MG/DL (8.5-10.1); CARBON DIOXIDE LEVEL 29 MEQ/L (21-32); CHLORIDE LEVEL 111 MEQ/L (98-107); CREATININE FOR GFR 0.67 MG/DL (0.55-1.30); FREE T4 0.94 NG/DL (0.76-1.46); GLOMERULAR FILTRATION RATE > 60.0 (>51); GLUCOSE, FASTING 103 MG/DL (70-100); RHEUMATOID FACTOR QUANT < 10.0 IU/ML (<15.0); SODIUM LEVEL 142 MEQ/L (136-145); TOTAL PROTEIN 6.5 GM/DL (6.4-8.2)
[2022-03-25 16:13] LABS: TOTAL 25(OH) VITAMIN D 30.9 NG/ML (30.0-100.0)
[2022-03-25 16:15] LABS: FOLATE 4.8 NG/ML; VITAMIN B12 LEVEL 893 PG/ML
[2022-03-25 22:01] LABS: HEMOGLOBIN A1c 5.3 %
[2022-03-26 14:08] LABS: ANTINUCLEAR ANTIBODIES DIRECT Negative (Negative); SJOGREN'S ANTI SS-A <0.2 AI (0.0-0.9); SJOGREN'S ANTI SS-B <0.2 AI (0.0-0.9)
== END ==
LOC: M WUC 09:09
PROVIDERS: ATTEND Nurse Practitioner Family
DX: L29.9 Pruritus, unspecified (principal); R53.83 Other fatigue; M12.9 Arthropathy, unspecified; R63.5 Abnormal weight gain

== ENCOUNTER → 2022-07-05 | Outpatient (REF) | payer OTHER | LOC: M LAB REF 21:45 | PROVIDERS: ATTEND Physician Assistant Medical | DX: R50.9 Fever, unspecified (principal); R05.9 Cough, unspecified ==

== ENCOUNTER → 2022-08-12 | Outpatient (CLI) | payer OTHER | LOC: M WHC 13:08 | PROVIDERS: ATTEND Advanced Practice Midwife | DX: Z12.31 Encounter for screening mammogram for malignant neoplasm of breast (principal) ==

== ENCOUNTER → 2022-09-30 | Outpatient (CLI) | payer OTHER ==
[2022-09-30 12:43] LABS: BASO % 0.5 % (0.0-1.0); EOS # 0.1 10^3/uL (0.0-0.5); EOS % 1.3 % (0.0-3.0); HEMATOCRIT 41.8 % (36.0-47.0); HEMOGLOBIN 13.5 g/dl (12.0-15.5); LYMPH # 2.1 10^3/uL (1.5-5.0); LYMPH % 32.6 % (24.0-44.0); MEAN CORPUSCULAR HEMOGLOBIN 29.4 pg (27.0-33.0); MEAN CORPUSCULAR HGB CONC 32.3 g/dl (32.0-36.5); MEAN CORPUSCULAR VOLUME 91.1 fl (80.0-96.0); MONO # 0.5 10^3/uL (0.0-0.8); MONO % 7.5 % (2.0-8.0); NEUTROPHILS # 3.7 10^3/uL (1.5-8.5); NEUTROPHILS % 57.9 % (36.0-66.0); PLATELET COUNT, AUTOMATED 237 10^3/uL (150-450); RED BLOOD COUNT 4.59 10^6/uL (4.00-5.40); WHITE BLOOD COUNT 6.4 10^3/uL (4.0-10.0)
[2022-09-30 12:52] LABS: FERRITIN 83.4 NG/ML (7.3-270.7); HEMOGLOBIN A1c 5.2 % (4.0-6.0); TOTAL 25(OH) VITAMIN D 41.6 NG/ML (20.0-100.0)
[2022-09-30 12:53] LABS: ALBUMIN 3.8 G/DL (3.2-5.2); ALKALINE PHOSPHATASE 74 U/L (46-116); ALT/SGPT 19 U/L (7.0-40); AST/SGOT 18 U/L (<34); BILIRUBIN,TOTAL 0.5 MG/DL (0.3-1.2); BLOOD UREA NITROGEN 17 MG/DL (9-23); CALCIUM LEVEL 8.7 MG/DL (8.5-10.1); CARBON DIOXIDE LEVEL 27 MMOL/L (20-31); CHLORIDE LEVEL 108 MMOL/L (98-107); CREATININE FOR GFR 0.75 MG/DL (0.55-1.30); FREE T4 1.03 NG/DL (0.89-1.76); GLOMERULAR FILTRATION RATE > 60.0 (>51); GLUCOSE, FASTING 97 MG/DL (60-100); IRON (FE) 76 UG/DL (50-170); POTASSIUM SERUM 4.1 MMOL/L (3.5-5.1); SODIUM LEVEL 141 MMOL/L (136-145); THYROID STIMULATING HORMONE 1.906 uIU/ML (0.55-4.78); TOTAL PROTEIN 6.4 G/DL (5.7-8.2)
[2022-09-30 12:55] LABS: PERCENT SATURATION 24.9 % (13.2-45.0); RHEUMATOID FACTOR QUANT 4.9 IU/ML (<14); TOTAL IRON BINDING CAPACITY 305 UG/DL (250-425)
[2022-09-30 13:14] LABS: ERYTHROCYTE SEDIMENTATION RATE 31 mm/hr (0-30)
[2022-10-01 21:07] LABS: ANA (HEP2) Negative (.); CYCLIC CITRULLINATED PEPTIDE 4 units (0-19); SSA SJOGRENS A <0.2 AI (0.0-0.9); SSB SJOGRENS B <0.2 AI (0.0-0.9)
== END ==
LOC: M WUC 09:08
PROVIDERS: ATTEND Nurse Practitioner Family
DX: R21 Rash and other nonspecific skin eruption (principal); R53.83 Other fatigue

== ENCOUNTER → 2022-12-25 | Outpatient (CLI) | payer OTHER ==
[2022-12-25 11:11] LABS: ALBUMIN 3.7 G/DL (3.2-5.2); ALKALINE PHOSPHATASE 71 U/L (46-116); ALT/SGPT 18 U/L (7.0-40); AST/SGOT 14 U/L (<34); BILIRUBIN,TOTAL 0.6 MG/DL (0.3-1.2); BLOOD UREA NITROGEN 13 MG/DL (9-23); CALCIUM LEVEL 8.7 MG/DL (8.5-10.1); CARBON DIOXIDE LEVEL 27 MMOL/L (20-31); CHLORIDE LEVEL 108 MMOL/L (98-107); CHOLESTEROL LEVEL 144 MG/DL (<200); CHOLESTEROL RISK RATIO 3.31 (<5); CREATININE FOR GFR 0.77 MG/DL (0.55-1.30); GLOMERULAR FILTRATION RATE > 60.0 (>51); GLUCOSE, FASTING 93 MG/DL (60-100); HDL CHOLESTEROL 43.5 MG/DL (>40); LDL CHOLESTEROL 88.3 MG/DL (<100); NON-HDL-C 100.5 MG/DL; POTASSIUM SERUM 4.2 MMOL/L (3.5-5.1); SODIUM LEVEL 140 MMOL/L (136-145); TOTAL PROTEIN 6.5 G/DL (5.7-8.2); TRIGLYCERIDES LEVEL 61 MG/DL (<150)
== END ==
LOC: M WUC 08:12
PROVIDERS: ATTEND Nurse Practitioner Family
DX: Z00.00 Encounter for general adult medical examination without abnormal findings (principal)

== ENCOUNTER → 2023-02-02 | Outpatient (REF) | payer OTHER | LOC: M LAB REF 18:20 | PROVIDERS: ATTEND Registered Nurse | DX: R35.0 Frequency of micturition (principal) ==

== ENCOUNTER → 2023-10-05 | Outpatient (CLI) | payer OTHER | LOC: M WHC 08:10 | PROVIDERS: ATTEND Registered Nurse | DX: Z12.31 Encounter for screening mammogram for malignant neoplasm of breast (principal) ==

== ENCOUNTER → 2023-12-29 | Outpatient (CLI) | payer OTHER ==
[2023-12-29 12:41] LABS: ALBUMIN 3.2 G/DL (3.2-5.2); ALKALINE PHOSPHATASE 65 U/L (46-116); ALT/SGPT 26 U/L (7.0-40); AST/SGOT 14 U/L (<34); BILIRUBIN,TOTAL 0.4 MG/DL (0.3-1.2); BLOOD UREA NITROGEN 16 MG/DL (9-23); CALCIUM LEVEL 8.5 MG/DL (8.5-10.1); CARBON DIOXIDE LEVEL 25 MMOL/L (20-31); CHLORIDE LEVEL 110 MMOL/L (98-107); CHOLESTEROL LEVEL 149 MG/DL (<200); CHOLESTEROL RISK RATIO 3.45 (<5); CREATININE FOR GFR 0.75 MG/DL (0.55-1.30); GLOMERULAR FILTRATION RATE > 60.0 (>51); GLUCOSE, FASTING 104 MG/DL (60-100); HDL CHOLESTEROL 43.1 MG/DL (>40); LDL CHOLESTEROL 75.9 MG/DL (<100); NON-HDL-C 105.9 MG/DL; POTASSIUM SERUM 4.2 MMOL/L (3.5-5.1); SODIUM LEVEL 143 MMOL/L (136-145); TOTAL PROTEIN 6.2 G/DL (5.7-8.2); TRIGLYCERIDES LEVEL 150 MG/DL (<150)
[2023-12-29 12:43] LABS: FREE T4 1.01 NG/DL (0.89-1.76); RHEUMATOID FACTOR QUANT < 3.5 IU/ML (<14); THYROID STIMULATING HORMONE 1.379 uIU/ML (0.55-4.78)
[2023-12-29 12:47] LABS: BASO % 0.5 % (0.0-1.0); EOS # 0.1 10^3/uL (0.0-0.5); EOS % 1.4 % (0.0-3.0); HEMATOCRIT 41.6 % (36.0-47.0); HEMOGLOBIN 13.6 g/dl (12.0-15.5); LYMPH # 1.9 10^3/uL (1.5-5.0); LYMPH % 30.2 % (24.0-44.0); MEAN CORPUSCULAR HEMOGLOBIN 30.2 pg (27.0-33.0); MEAN CORPUSCULAR HGB CONC 32.7 g/dl (32.0-36.5); MEAN CORPUSCULAR VOLUME 92.2 fl (80.0-96.0); MONO # 0.6 10^3/uL (0.0-0.8); MONO % 8.8 % (2.0-8.0); NEUTROPHILS # 3.7 10^3/uL (1.5-8.5); NEUTROPHILS % 58.8 % (36.0-66.0); PLATELET COUNT, AUTOMATED 216 10^3/uL (150-450); RED BLOOD COUNT 4.51 10^6/uL (4.00-5.40); WHITE BLOOD COUNT 6.3 10^3/uL (4.0-10.0)
[2023-12-29 13:08] LABS: ERYTHROCYTE SEDIMENTATION RATE 19 mm/hr (0-30)
[2023-12-29 13:09] LABS: CPK CREATINE PHOSPHOKINASE 84 U/L (34-145); URIC ACID 4.2 MG/DL (3.1-7.8)
== END ==
LOC: M WUC 08:09
PROVIDERS: ATTEND Nurse Practitioner Family
DX: Z00.00 Encounter for general adult medical examination without abnormal findings (principal); M79.10 Myalgia, unspecified site

== ENCOUNTER → 2024-12-22 | Outpatient (REF) | payer OTHER ==
[~2024-12-22] MED LIST changes: +GABA-1172 PO; -GABA-282 PO
== END ==
LOC: M SFHCDERM 17:50
PROVIDERS: ATTEND Nurse Practitioner Family
DX: L85.9 Epidermal thickening, unspecified (principal)

== ENCOUNTER → 2025-01-02 | Outpatient (CLI) | payer OTHER ==
[2025-01-02 12:47] LABS: BASO % 0.6 % (0.0-1.0); EOS # 0.1 10^3/uL (0.0-0.5); EOS % 1.4 % (0.0-3.0); HEMATOCRIT 43.7 % (36.0-47.0); HEMOGLOBIN 13.9 g/dl (12.0-15.5); LYMPH % 27.7 % (24.0-44.0); MEAN CORPUSCULAR HEMOGLOBIN 28.9 pg (27.0-33.0); MEAN CORPUSCULAR HGB CONC 31.8 g/dl (32.0-36.5); MEAN CORPUSCULAR VOLUME 90.9 fl (80.0-96.0); MONO # 0.6 10^3/uL (0.0-0.8); MONO % 8.6 % (2.0-8.0); NEUTROPHILS # 4.5 10^3/uL (1.5-8.5); NEUTROPHILS % 61.4 % (36.0-66.0); PLATELET COUNT, AUTOMATED 221 10^3/uL (150-450); RED BLOOD COUNT 4.81 10^6/uL (4.00-5.40); WHITE BLOOD COUNT 7.3 10^3/uL (4.0-10.0)
[2025-01-02 13:16] LABS: URIC ACID 4.3 MG/DL (3.1-7.8)
[2025-01-02 13:17] LABS: THYROID STIMULATING HORMONE 2.501 uIU/ML (0.55-4.78)
[2025-01-02 13:18] LABS: C REACTIVE PROTEIN QUANTITATIV 1.15 MG/DL (<1.0)
[2025-01-02 13:19] LABS: ERYTHROCYTE SEDIMENTATION RATE 24 mm/hr (0-30); FREE T4 1.04 NG/DL (0.89-1.76); RHEUMATOID FACTOR QUANT 8.9 IU/ML (<14)
[2025-01-02 13:28] LABS: ALBUMIN 3.6 G/DL (3.2-5.2); BILIRUBIN,TOTAL 0.5 MG/DL (0.3-1.2); CALCIUM LEVEL 8.7 MG/DL (8.5-10.1); CHOLESTEROL RISK RATIO 3.19 (<5); CREATININE FOR GFR 0.78 MG/DL (0.55-1.30); GLOMERULAR FILTRATION RATE 88.5 (>51); HDL CHOLESTEROL 45.7 MG/DL (>40); LDL CHOLESTEROL 84.5 MG/DL (<100); NON-HDL-C 100.3 MG/DL; POTASSIUM SERUM 4.3 MMOL/L (3.5-5.1); TOTAL PROTEIN 6.7 G/DL (5.7-8.2)
[2025-01-04 03:08] LABS: SSA SJOGRENS A <1.0 NEG AI (<1.0 NEG); SSB SJOGRENS B <1.0 NEG AI (<1.0 NEG)
== END ==
LOC: M WUC 08:04
PROVIDERS: ATTEND Nurse Practitioner Family
DX: Z00.00 Encounter for general adult medical examination without abnormal findings (principal); M79.7 Fibromyalgia; E66.9 Obesity, unspecified

== ENCOUNTER → 2025-07-06 | Outpatient (REF) | payer OTHER ==
[2025-07-10 14:15] LABS: HPV APTIMA Not Detected (Not Detected)
== END ==
LOC: M SFHCWAGY 13:25
PROVIDERS: ATTEND Student in an Organized Health Care Education/Training Program
DX: Z01.419 Encounter for gynecological examination (general) (routine) without abnormal findings (principal)